=== PATIENT | female | born 1930 | race Caucasian/White ===

== ENCOUNTER 2017-10-23 17:54 | Inpatient (IN) | payer MEDICARE, OTHER ==
[2017-10-23] MEDS ORDERED: ONDANSETRON 4 MG INJ IV ×2 (18:30→23:00)
[2017-10-23] MEDS ORDERED: ACETAMINOPHEN 325 MG TAB PO (18:30)
[2017-10-23 19:28] LABS: ADD MAN DIFF? NO
[2017-10-23] MEDS: CEFEPIME 2GM/50 ML (PMX) 50 ML IVPB (19:30)
[2017-10-23 19:49] LABS: ALANINE AMINOTRANSFERASE 21 IU/L (13-69); ALBUMIN 4.1 g/dl (3.3-4.9); ALKALINE PHOSPHATASE 70 IU/L (42-121); ANION GAP 14 (8-16); ASPARTATE AMINO TRANSFERASE 32 IU/L (15-46); BILIRUBIN,INDIRECT 0.7 mg/dl (0-1.1); BILIRUBIN,TOTAL 0.7 mg/dl (0.2-1.3); BLOOD UREA NITROGEN 18 mg/dl (7-20); CALCIUM 9.1 mg/dl (8.4-10.2); CARBON DIOXIDE 36 mmol/L (21-31); CHLORIDE 91 mmol/L (97-110); CREATININE 0.48 mg/dl (0.44-1.00); GLUCOSE 121 mg/dl (70-220); POTASSIUM 3.6 mmol/L (3.5-5.1); SODIUM 137 mmol/L (135-144); TOTAL PROTEIN 8.2 g/dl (6.1-8.1)
[2017-10-23 19:52] LABS: INR 1.15; PARTIAL THROMBOPLASTIN TIME 29.7 Sec (25.0-35.0); PROTIME 14.9 Sec (11.9-14.9); PT RATIO 1.2
[2017-10-23 20:08] LABS: TROPONIN-I < 0.012 ng/ml (0.000-0.120)
[2017-10-23 20:52] LABS: WHITE BLOOD COUNT 8.3 10^3/ul (4.8-10.8)
[2017-10-23 20:52] LABS: BASOPHILS % 0.2 % (0.0-2.0); EOSINOPHILS # 0.1 10^3/ul (0.0-0.5); EOSINOPHILS % 0.7 % (0.0-7.0); HEMOGLOBIN 12.1 g/dl (12.0-16.0); LYMPHOCYTES # 0.7 10^3/ul (0.8-2.9); LYMPHOCYTES % 8.3 % (15.0-51.0); MEAN CORPUSCULAR HEMOGLOBIN 28.9 pg (29.0-33.0); MEAN CORPUSCULAR HGB CONC 33.6 g/dl (32.0-37.0); MEAN CORPUSCULAR VOLUME 85.9 fl (82.0-101.0); MONOCYTE # 1.3 10^3/ul (0.3-0.9); MONOCYTES % 15.4 % (0.0-11.0); NEUTROPHIL # 6.2 10^3/ul (1.6-7.5); PLATELET COUNT 131 10^3/UL (140-415); RED BLOOD COUNT 4.19 10^6/ul (4.20-5.40); RED CELL DISTRIBUTION WIDTH 15.8 % (11.5-14.5)
[2017-10-23] MEDS: VANCOMYCIN 1 GM (PMX) 250 ML IVPB (21:31)
[2017-10-23 22:41] LABS: ADD UMIC NO; UR ASCORBIC ACID NEGATIVE (NEGATIVE); UR BILIRUBIN (Dip) NEGATIVE (NEGATIVE); UR BLOOD (Dip) NEGATIVE (NEGATIVE); UR CLARITY CLEAR (CLEAR); UR COLOR YELLOW (YELLOW); UR GLUCOSE (Dip) NEGATIVE (NEGATIVE); UR KETONES (Dip) NEGATIVE (NEGATIVE); UR LEUKOCYTE ESTERASE (Dip) NEGATIVE Leu/ul (NEGATIVE); UR NITRITE (Dip) NEGATIVE (NEGATIVE); UR SPECIFIC GRAVITY (Dip) 1.006 (1.003-1.030); UR TOTAL PROTEIN (Dip) NEGATIVE (NEGATIVE); UR UROBILINOGEN (Dip) NEGATIVE (NEGATIVE)
[2017-10-23] MEDS ORDERED: ACETAMINOPHEN 500 MG TAB PO ×2 (23:00→23:30)
[2017-10-23] MEDS ORDERED: MINERAL OIL 133 ML ENEMA PR (23:30)
[2017-10-24] MEDS: DEXTROSE 5%-0.45% NACL 1,000 ML IV ×2 (00:36→12:50)
[2017-10-24] MEDS ORDERED: PENDING SANTYL ORDER FOR WOUND CARE XX (02:30)
[2017-10-24] MEDS: BUMETANIDE 0.5 MG TAB PO ×2 (05:09→17:00)
[2017-10-24] MEDS: LEVOTHYROXINE 150 MCG TAB PO (05:09)
[2017-10-24] MEDS: LIOTHYRONINE 5 MCG TAB PO (05:09)
[2017-10-24 07:12] LABS: ADD MAN DIFF? NO
[2017-10-24 07:16] LABS: WHITE BLOOD COUNT 8.6 10^3/ul (4.8-10.8)
[2017-10-24 07:16] LABS: ABNORMAL IP MESSAGE 1; BASOPHILS % 0.3 % (0.0-2.0); EOSINOPHILS % 0.2 % (0.0-7.0); LYMPHOCYTES # 0.6 10^3/ul (0.8-2.9); LYMPHOCYTES % 6.7 % (15.0-51.0); MEAN CORPUSCULAR HEMOGLOBIN 28.8 pg (29.0-33.0); MEAN CORPUSCULAR HGB CONC 33.3 g/dl (32.0-37.0); MEAN CORPUSCULAR VOLUME 86.5 fl (82.0-101.0); MEAN PLATELET VOLUME 12.8 fl (7.4-10.4); MONOCYTE # 1.2 10^3/ul (0.3-0.9); MONOCYTES % 14.3 % (0.0-11.0); NEUTROPHIL # 6.7 10^3/ul (1.6-7.5); NEUTROPHILS % 78.3 % (39.0-77.0); PLATELET COUNT 131 10^3/UL (140-415); RED BLOOD COUNT 4.16 10^6/ul (4.20-5.40); RED CELL DISTRIBUTION WIDTH 15.8 % (11.5-14.5)
[2017-10-24 07:37] LABS: ANION GAP 11 (8-16); BLOOD UREA NITROGEN 14 mg/dl (7-20); CALCIUM 8.7 mg/dl (8.4-10.2); CARBON DIOXIDE 37 mmol/L (21-31); CHLORIDE 92 mmol/L (97-110); CREATININE 0.47 mg/dl (0.44-1.00); GLUCOSE 115 mg/dl (70-220); POTASSIUM 3.1 mmol/L (3.5-5.1); SODIUM 137 mmol/L (135-144)
[2017-10-24 08:08] LABS: THYROID STIMULATING HORMONE 0.727 MIU/L (0.465-4.680)
[2017-10-24] MEDS: POLYETHYLENE GLYCOL 17 GM PACKET PO (08:26)
[2017-10-24] MEDS: AMLODIPINE 5 MG TAB PO ×2 (08:26→21:00)
[2017-10-24] MEDS: CALCIUM/VITAMIN D (500/200) TAB PO (08:27)
[2017-10-24] MEDS: CEFEPIME 1GM/50 ML (PMX) 50 ML IVPB ×2 (08:34→21:21)
[2017-10-24] MEDS: hydrALAzine 20 MG INJ IV (08:35)
[2017-10-24] MEDS: ENOXAPARIN 30 MG/0.3 ML SYG SC (08:35)
[2017-10-24] MEDS: POTASSIUM CHLORIDE 50 ML IVPB ×4 (11:30→18:32)
[2017-10-24] MEDS ORDERED: POTASSIUM CHLORIDE 100 ML IVPB ×2 (12:00→12:30)
[2017-10-24] MEDS: ACETAMINOPHEN 1000MG/100ML IV 100 ML IVPB (12:02)
[2017-10-24] MEDS: SENNA TAB PO (21:00)
[2017-10-24] MEDS ORDERED: NON-FORMULARY/PATIENT OWN MED (Melatonin 10 MG) PO (21:00)
[2017-10-24] MEDS: IBUPROFEN 600 MG TAB PO ×3 (22:50→23:05)
[2017-10-25] MEDS: LIOTHYRONINE 5 MCG TAB PO (05:58)
[2017-10-25] MEDS: IBUPROFEN 600 MG TAB PO ×3 (05:58→21:19)
[2017-10-25] MEDS: BUMETANIDE 0.5 MG TAB PO ×2 (05:58→18:00)
[2017-10-25] MEDS: DEXTROSE 5%-0.45% NACL 1,000 ML IV (06:00)
[2017-10-25] MEDS: LEVOTHYROXINE 150 MCG TAB PO (06:00)
[2017-10-25] MEDS: POLYETHYLENE GLYCOL 17 GM PACKET PO (09:00)
[2017-10-25] MEDS: AMLODIPINE 5 MG TAB PO ×2 (09:00→21:00)
[2017-10-25] MEDS: CALCIUM/VITAMIN D (500/200) TAB PO (09:00)
[2017-10-25] MEDS: ENOXAPARIN 30 MG/0.3 ML SYG SC (09:12)
[2017-10-25 09:29] LABS: ADD MAN DIFF? NO
[2017-10-25 09:33] LABS: WHITE BLOOD COUNT 7.4 10^3/ul (4.8-10.8)
[2017-10-25 09:33] LABS: BASOPHILS % 0.4 % (0.0-2.0); EOSINOPHILS % 0.5 % (0.0-7.0); HEMOGLOBIN 11.6 g/dl (12.0-16.0); LYMPHOCYTES # 0.7 10^3/ul (0.8-2.9); LYMPHOCYTES % 9.5 % (15.0-51.0); MEAN CORPUSCULAR HEMOGLOBIN 28.5 pg (29.0-33.0); MEAN CORPUSCULAR HGB CONC 32.2 g/dl (32.0-37.0); MEAN CORPUSCULAR VOLUME 88.5 fl (82.0-101.0); MEAN PLATELET VOLUME 12.5 fl (7.4-10.4); MONOCYTE # 1.2 10^3/ul (0.3-0.9); MONOCYTES % 16.3 % (0.0-11.0); NEUTROPHIL # 5.4 10^3/ul (1.6-7.5); PLATELET COUNT 133 10^3/UL (140-415); RED BLOOD COUNT 4.07 10^6/ul (4.20-5.40); RED CELL DISTRIBUTION WIDTH 16.2 % (11.5-14.5)
[2017-10-25] MEDS: CEFEPIME 1GM/50 ML (PMX) 50 ML IVPB ×2 (09:46→21:20)
[2017-10-25 09:59] LABS: INR 1.26; PT RATIO 1.3
[2017-10-25] MEDS: BARIUM SULFATE 135 ML (E-Z HD) PO (13:59)
[2017-10-25] MEDS: FUROSEMIDE 20 MG INJ IV (14:56)
[2017-10-25] MEDS: D5-NS + KCL 20 MEQ 1,000 ML IV (18:49)
[2017-10-25] MEDS: POTASSIUM CHLORIDE 100 ML IVPB (18:49)
[2017-10-25] MEDS: SENNA TAB PO (21:00)
[2017-10-26] MEDS: LIOTHYRONINE 5 MCG TAB PO (05:15)
[2017-10-26] MEDS: BUMETANIDE 0.5 MG TAB PO ×2 (05:15→17:06)
[2017-10-26] MEDS: IBUPROFEN 600 MG TAB PO ×3 (05:15→21:22)
[2017-10-26] MEDS: LEVOTHYROXINE 150 MCG TAB PO (05:16)
[2017-10-26 06:04] LABS: ADD MAN DIFF? NO
[2017-10-26 06:12] LABS: BASOPHILS % 0.3 % (0.0-2.0); EOSINOPHILS # 0.1 10^3/ul (0.0-0.5); EOSINOPHILS % 1.4 % (0.0-7.0); HEMATOCRIT 35.7 % (37.0-47.0); HEMOGLOBIN 11.5 g/dl (12.0-16.0); LYMPHOCYTES # 0.7 10^3/ul (0.8-2.9); LYMPHOCYTES % 10.4 % (15.0-51.0); MEAN CORPUSCULAR HEMOGLOBIN 28.8 pg (29.0-33.0); MEAN CORPUSCULAR HGB CONC 32.2 g/dl (32.0-37.0); MEAN CORPUSCULAR VOLUME 89.5 fl (82.0-101.0); MEAN PLATELET VOLUME 12.4 fl (7.4-10.4); MONOCYTE # 0.8 10^3/ul (0.3-0.9); MONOCYTES % 11.7 % (0.0-11.0); NEUTROPHIL # 5.3 10^3/ul (1.6-7.5); NEUTROPHILS % 75.8 % (39.0-77.0); PLATELET COUNT 144 10^3/UL (140-415); RED BLOOD COUNT 3.99 10^6/ul (4.20-5.40)
[2017-10-26 06:31] LABS: ANION GAP 13 (8-16); BLOOD UREA NITROGEN 19 mg/dl (7-20); CALCIUM 8.8 mg/dl (8.4-10.2); CARBON DIOXIDE 35 mmol/L (21-31); CHLORIDE 96 mmol/L (97-110); CREATININE 0.56 mg/dl (0.44-1.00); GLUCOSE 84 mg/dl (70-220); POTASSIUM 3.8 mmol/L (3.5-5.1); SODIUM 140 mmol/L (135-144)
[2017-10-26] MEDS: CALCIUM/VITAMIN D (500/200) TAB PO (08:15)
[2017-10-26] MEDS: AMLODIPINE 5 MG TAB PO ×2 (08:15→21:00)
[2017-10-26] MEDS: POLYETHYLENE GLYCOL 17 GM PACKET PO (08:15)
[2017-10-26] MEDS: CEFEPIME 1GM/50 ML (PMX) 50 ML IVPB ×2 (08:23→21:23)
[2017-10-26] MEDS: ENOXAPARIN 30 MG/0.3 ML SYG SC (08:27)
[2017-10-26] MEDS: D5-NS + KCL 20 MEQ 1,000 ML IV (10:40)
[2017-10-26] MEDS: SENNA TAB PO (21:00)
[2017-10-27] MEDS: D5-NS + KCL 20 MEQ 1,000 ML IV (03:20)
[2017-10-27] MEDS: BUMETANIDE 0.5 MG TAB PO (06:00)
[2017-10-27] MEDS: IBUPROFEN 600 MG TAB PO ×3 (06:00→21:19)
[2017-10-27] MEDS: LIOTHYRONINE 5 MCG TAB PO (07:00)
[2017-10-27] MEDS: LEVOTHYROXINE 150 MCG TAB PO (07:00)
[2017-10-27] MEDS: BARIUM SULF 2% 450 ML BTL (BERRY SMOOTHIE) PO (08:00)
[2017-10-27 08:16] LABS: ANION GAP 9 (8-16); BLOOD UREA NITROGEN 22 mg/dl (7-20); CALCIUM 8.8 mg/dl (8.4-10.2); CARBON DIOXIDE 35 mmol/L (21-31); CHLORIDE 102 mmol/L (97-110); CREATININE 0.56 mg/dl (0.44-1.00); GLUCOSE 101 mg/dl (70-220); SODIUM 142 mmol/L (135-144)
[2017-10-27] MEDS: POLYETHYLENE GLYCOL 17 GM PACKET PO (09:00)
[2017-10-27] MEDS: AMLODIPINE 5 MG TAB PO ×2 (09:00→21:00)
[2017-10-27] MEDS: CALCIUM/VITAMIN D (500/200) TAB PO (09:00)
[2017-10-27] MEDS: CEFEPIME 1GM/50 ML (PMX) 50 ML IVPB ×2 (09:05→21:26)
[2017-10-27] MEDS: ENOXAPARIN 30 MG/0.3 ML SYG SC (09:09)
[2017-10-27] MEDS: BISACODYL (EC) 5 MG TAB PO (09:47)
[2017-10-27] MEDS: LUBIPROSTONE 24 MCG CAP PO ×2 (09:48→21:00)
[2017-10-27] MEDS: SOD CHLORIDE 0.9% 100 ML (12:05)
[2017-10-27] MEDS: IOHEXOL 300MG/ML 150 ML BTL (12:05)
[2017-10-27] MEDS: BUMETANIDE 1 MG INJ IV (18:13)
[2017-10-27] MEDS: SENNA TAB PO (21:00)
[2017-10-28] MEDS: IBUPROFEN 600 MG TAB PO ×3 (05:17→22:00)
[2017-10-28] MEDS: BUMETANIDE 1 MG INJ IV ×2 (05:45→17:39)
[2017-10-28] MEDS: D5-NS + KCL 20 MEQ 1,000 ML IV ×2 (05:52→12:24)
[2017-10-28] MEDS: PANTOPRAZOLE (EC) 40 MG TAB PO (06:00)
[2017-10-28] MEDS: LEVOTHYROXINE 150 MCG TAB PO (07:00)
[2017-10-28] MEDS: LIOTHYRONINE 5 MCG TAB PO (07:00)
[2017-10-28 08:12] LABS: ANION GAP 13 (8-16); BLOOD UREA NITROGEN 20 mg/dl (7-20); CALCIUM 9.2 mg/dl (8.4-10.2); CARBON DIOXIDE 39 mmol/L (21-31); CHLORIDE 100 mmol/L (97-110); CREATININE 0.55 mg/dl (0.44-1.00); GLUCOSE 100 mg/dl (70-220); POTASSIUM 3.7 mmol/L (3.5-5.1); SODIUM 148 mmol/L (135-144)
[2017-10-28] MEDS: LUBIPROSTONE 24 MCG CAP PO ×2 (08:53→21:00)
[2017-10-28] MEDS: POLYETHYLENE GLYCOL 17 GM PACKET PO (08:53)
[2017-10-28] MEDS: CALCIUM/VITAMIN D (500/200) TAB PO (08:54)
[2017-10-28] MEDS: AMLODIPINE 5 MG TAB PO ×2 (08:54→21:00)
[2017-10-28] MEDS: CEFEPIME 1GM/50 ML (PMX) 50 ML IVPB ×2 (08:57→21:00)
[2017-10-28] MEDS: hydrALAzine 20 MG INJ IV ×2 (08:58→15:52)
[2017-10-28] MEDS: ENOXAPARIN 30 MG/0.3 ML SYG SC (08:58)
[2017-10-28] MEDS: SOD CHLORIDE 0.9% 100 ML (11:50)
[2017-10-28] MEDS: IOHEXOL 300MG/ML 150 ML BTL (11:50)
[2017-10-28] MEDS: SENNA TAB PO (21:00)
[2017-10-29] MEDS: D5-NS + KCL 20 MEQ 1,000 ML IV (05:23)
[2017-10-29] MEDS: BUMETANIDE 1 MG INJ IV ×2 (05:23→17:30)
[2017-10-29] MEDS: hydrALAzine 20 MG INJ IV ×2 (05:23→21:59)
[2017-10-29] MEDS: IBUPROFEN 600 MG TAB PO ×3 (05:38→22:00)
[2017-10-29] MEDS: PANTOPRAZOLE (EC) 40 MG TAB PO (05:38)
[2017-10-29] MEDS: LEVOTHYROXINE 150 MCG TAB PO (05:39)
[2017-10-29] MEDS: LIOTHYRONINE 5 MCG TAB PO (05:39)
[2017-10-29 08:27] LABS: ANION GAP 15 (8-16); BLOOD UREA NITROGEN 16 mg/dl (7-20); CALCIUM 9.2 mg/dl (8.4-10.2); CARBON DIOXIDE 40 mmol/L (21-31); CHLORIDE 95 mmol/L (97-110); CREATININE 0.49 mg/dl (0.44-1.00); GLUCOSE 132 mg/dl (70-220); POTASSIUM 3.1 mmol/L (3.5-5.1); SODIUM 147 mmol/L (135-144)
[2017-10-29] MEDS: AMLODIPINE 5 MG TAB PO ×2 (08:55→21:00)
[2017-10-29] MEDS: CALCIUM/VITAMIN D (500/200) TAB PO (08:55)
[2017-10-29] MEDS: POLYETHYLENE GLYCOL 17 GM PACKET PO (08:55)
[2017-10-29] MEDS: LUBIPROSTONE 24 MCG CAP PO ×2 (08:55→21:00)
[2017-10-29] MEDS: CEFEPIME 1GM/50 ML (PMX) 50 ML IVPB ×2 (08:56→21:58)
[2017-10-29] MEDS: ENOXAPARIN 30 MG/0.3 ML SYG SC (08:59)
[2017-10-29] MEDS ORDERED: HEPARIN 1000 UNITS/NS (A-LINE) 1,000 ML (11:39)
[2017-10-29] MEDS ORDERED: LIDOCAINE 1% (MDV) 20 ML INJ (11:39)
[2017-10-29 12:54] LABS: INR 1.12; PROTIME 14.6 Sec (11.9-14.9); PT RATIO 1.1
[2017-10-29 12:55] LABS: PARTIAL THROMBOPLASTIN TIME 37.4 Sec (25.0-35.0)
[2017-10-29] MEDS: D5W-0.45 NACL + KCL 20 MEQ 1,000 ML IV (13:19)
[2017-10-29] MEDS: POTASSIUM CHLORIDE 100 ML IVPB ×2 (13:19→15:20)
[2017-10-29] MEDS: SENNA TAB PO (21:00)
[2017-10-30] MEDS: D5W-0.45 NACL + KCL 20 MEQ 1,000 ML IV ×2 (02:48→17:34)
[2017-10-30] MEDS: PANTOPRAZOLE (EC) 40 MG TAB PO (06:00)
[2017-10-30] MEDS: IBUPROFEN 600 MG TAB PO ×3 (06:00→21:01)
[2017-10-30] MEDS: BUMETANIDE 1 MG INJ IV ×2 (06:38→17:33)
[2017-10-30] MEDS: LEVOTHYROXINE 150 MCG TAB PO (06:39)
[2017-10-30] MEDS: LIOTHYRONINE 5 MCG TAB PO (06:39)
[2017-10-30] MEDS: CEFEPIME 1GM/50 ML (PMX) 50 ML IVPB ×2 (08:41→22:14)
[2017-10-30] MEDS: ENOXAPARIN 30 MG/0.3 ML SYG SC (08:45)
[2017-10-30] MEDS: CALCIUM/VITAMIN D (500/200) TAB PO (08:46)
[2017-10-30] MEDS: LUBIPROSTONE 24 MCG CAP PO ×2 (08:46→21:00)
[2017-10-30] MEDS: AMLODIPINE 5 MG TAB PO ×2 (08:46→21:00)
[2017-10-30] MEDS: POLYETHYLENE GLYCOL 17 GM PACKET PO (08:46)
[2017-10-30 08:49] LABS: ADD MAN DIFF? NO
[2017-10-30 08:56] LABS: BASOPHILS % 0.4 % (0.0-2.0); EOSINOPHILS # 0.1 10^3/ul (0.0-0.5); EOSINOPHILS % 1.2 % (0.0-7.0); HEMATOCRIT 38.1 % (37.0-47.0); LYMPHOCYTES # 0.8 10^3/ul (0.8-2.9); LYMPHOCYTES % 10.8 % (15.0-51.0); MEAN CORPUSCULAR HGB CONC 31.5 g/dl (32.0-37.0); MEAN CORPUSCULAR VOLUME 88.8 fl (82.0-101.0); MEAN PLATELET VOLUME 11.4 fl (7.4-10.4); MONOCYTE # 0.8 10^3/ul (0.3-0.9); MONOCYTES % 11.3 % (0.0-11.0); NEUTROPHIL # 5.5 10^3/ul (1.6-7.5); PLATELET COUNT 147 10^3/UL (140-415); RED BLOOD COUNT 4.29 10^6/ul (4.20-5.40); RED CELL DISTRIBUTION WIDTH 15.6 % (11.5-14.5)
[2017-10-30 08:56] LABS: WHITE BLOOD COUNT 7.2 10^3/ul (4.8-10.8)
[2017-10-30 09:05] LABS: PLATELET COUNT 147 10^3/UL (140-415)
[2017-10-30 09:15] LABS: BLOOD UREA NITROGEN 16 mg/dl (7-20); CALCIUM 9.1 mg/dl (8.4-10.2); CHLORIDE 96 mmol/L (97-110); CREATININE 0.46 mg/dl (0.44-1.00); GLUCOSE 124 mg/dl (70-220); POTASSIUM 4.3 mmol/L (3.5-5.1); SODIUM 145 mmol/L (135-144)
[2017-10-30 09:31] LABS: INR 1.14; PARTIAL THROMBOPLASTIN TIME 33.7 Sec (25.0-35.0); PROTIME 14.8 Sec (11.9-14.9); PT RATIO 1.2; THROMBIN TIME 18.4 SEC (13.8-19.1)
[2017-10-30] MEDS: PROPOFOL 0 ML (10:00)
[2017-10-30 10:01] LABS: CARBON DIOXIDE 41 mmol/L (21-31)
[2017-10-30 10:02] LABS: ANION GAP 12 (8-16)
[2017-10-30] MEDS ORDERED: AL HYDROX/MG HYDROX/SIMETH 30 ML CUP PO (11:00)
[2017-10-30] MEDS ORDERED: ONDANSETRON 4 MG INJ IV (11:00)
[2017-10-30] MEDS ORDERED: ACETAMINOPHEN 325 MG TAB PO (11:00)
[2017-10-30 11:57] LABS: CA27.29 11 U/mL (<38)
[2017-10-30 12:19] LABS: FLUID GLUCOSE 122 mg/dl
[2017-10-30 12:20] LABS: FLUID TOTAL PROTEIN 4.7 g/dl; FLUID TYPE PERICARDIAL FLUID
[2017-10-30 12:26] LABS: FLD MN% 36.4 %; FLD PMN% 63.6 %; FLD RBC 60000 /uL; FLD WBC 11 /cmm
[2017-10-30 12:42] LABS: FLUID LD 397 U/L
[2017-10-30 13:24] LABS: FLD CLARITY BLOODY; FLD COLOR RED
[2017-10-30 13:24] LABS: FLD TYPE OTHERS
[2017-10-30] MEDS: SOD CHLORIDE 0.9% 1,000 ML IV (14:09)
[2017-10-30] MEDS: SENNA TAB PO (21:00)
[2017-10-30 21:45] LABS: CANCER ANTIGEN 15-3 5 U/mL (<32)
[2017-10-31] MEDS: IBUPROFEN 600 MG TAB PO ×3 (06:00→22:00)
[2017-10-31] MEDS: PANTOPRAZOLE (EC) 40 MG TAB PO (06:00)
[2017-10-31] MEDS: BUMETANIDE 1 MG INJ IV (06:34)
[2017-10-31] MEDS: LIOTHYRONINE 5 MCG TAB PO (06:35)
[2017-10-31] MEDS: LEVOTHYROXINE 150 MCG TAB PO (06:35)
[2017-10-31] MEDS: D5W-0.45 NACL + KCL 20 MEQ 1,000 ML IV ×2 (07:55→21:42)
[2017-10-31] MEDS: CEFEPIME 1GM/50 ML (PMX) 50 ML IVPB ×2 (08:04→21:12)
[2017-10-31] MEDS: POLYETHYLENE GLYCOL 17 GM PACKET PO (08:07)
[2017-10-31] MEDS: CALCIUM/VITAMIN D (500/200) TAB PO (08:07)
[2017-10-31] MEDS: LUBIPROSTONE 24 MCG CAP PO ×2 (08:07→21:00)
[2017-10-31] MEDS: AMLODIPINE 5 MG TAB PO ×2 (08:07→21:00)
[2017-10-31 09:04] LABS: ADD MAN DIFF? NO
[2017-10-31 09:09] LABS: BASOPHILS % 0.2 % (0.0-2.0); EOSINOPHILS % 0.2 % (0.0-7.0); HEMATOCRIT 35.1 % (37.0-47.0); HEMOGLOBIN 11.2 g/dl (12.0-16.0); LYMPHOCYTES # 0.8 10^3/ul (0.8-2.9); LYMPHOCYTES % 7.5 % (15.0-51.0); MEAN CORPUSCULAR HEMOGLOBIN 28.4 pg (29.0-33.0); MEAN CORPUSCULAR HGB CONC 31.9 g/dl (32.0-37.0); MEAN CORPUSCULAR VOLUME 88.9 fl (82.0-101.0); MEAN PLATELET VOLUME 11.7 fl (7.4-10.4); MONOCYTE # 1.2 10^3/ul (0.3-0.9); MONOCYTES % 11.7 % (0.0-11.0); NEUTROPHIL # 8.1 10^3/ul (1.6-7.5); NEUTROPHILS % 80.1 % (39.0-77.0); PLATELET COUNT 130 10^3/UL (140-415); RED BLOOD COUNT 3.95 10^6/ul (4.20-5.40); RED CELL DISTRIBUTION WIDTH 15.5 % (11.5-14.5)
[2017-10-31 09:09] LABS: WHITE BLOOD COUNT 10.1 10^3/ul (4.8-10.8)
[2017-10-31 09:28] LABS: POSITIVE DIFF @See below
[2017-10-31 09:35] LABS: BLOOD UREA NITROGEN 20 mg/dl (7-20); CHLORIDE 92 mmol/L (97-110); CREATININE 0.67 mg/dl (0.44-1.00); GLUCOSE 129 mg/dl (70-220); POTASSIUM 3.6 mmol/L (3.5-5.1); SODIUM 144 mmol/L (135-144)
[2017-10-31 09:46] LABS: ANION GAP 12 (8-16)
[2017-10-31 09:48] LABS: CARBON DIOXIDE 44 mmol/L (21-31)
[2017-10-31] MEDS: ACETAZOLAMIDE 250 MG TAB PO (15:30)
[2017-10-31] MEDS: SENNA TAB PO (21:00)
[2017-10-31] MEDS: METOPROLOL 25 MG TAB PO (21:00)
[2017-10-31] MEDS: ENOXAPARIN 30 MG/0.3 ML SYG SC (21:13)
[2017-11-01 02:11] LABS: PROTEIN, TOTAL 6.6 g/dL (6.1-8.1)
[2017-11-01] MEDS: IBUPROFEN 600 MG TAB PO ×3 (06:00→22:00)
[2017-11-01] MEDS: PANTOPRAZOLE (EC) 40 MG TAB PO (06:00)
[2017-11-01] MEDS: LEVOTHYROXINE 150 MCG TAB PO (06:21)
[2017-11-01] MEDS: LIOTHYRONINE 5 MCG TAB PO (06:21)
[2017-11-01 07:19] LABS: BLOOD UREA NITROGEN 24 mg/dl (7-20); CALCIUM 8.9 mg/dl (8.4-10.2); CHLORIDE 95 mmol/L (97-110); CREATININE 0.63 mg/dl (0.44-1.00); GLUCOSE 118 mg/dl (70-220); POTASSIUM 3.6 mmol/L (3.5-5.1); SODIUM 146 mmol/L (135-144)
[2017-11-01 07:48] LABS: ANION GAP 13 (8-16)
[2017-11-01 07:50] LABS: CARBON DIOXIDE 42 mmol/L (21-31)
[2017-11-01] MEDS: ACETAZOLAMIDE 250 MG TAB PO (09:00)
[2017-11-01] MEDS: METOPROLOL 25 MG TAB PO ×2 (09:00→20:50)
[2017-11-01] MEDS: AMLODIPINE 5 MG TAB PO ×2 (09:00→20:51)
[2017-11-01] MEDS: CALCIUM/VITAMIN D (500/200) TAB PO (09:00)
[2017-11-01] MEDS: POLYETHYLENE GLYCOL 17 GM PACKET PO (09:00)
[2017-11-01] MEDS: LUBIPROSTONE 24 MCG CAP PO ×2 (09:00→20:50)
[2017-11-01] MEDS: ENOXAPARIN 30 MG/0.3 ML SYG SC ×2 (09:11→20:51)
[2017-11-01] MEDS: CEFEPIME 1GM/50 ML (PMX) 50 ML IVPB ×2 (09:16→20:39)
[2017-11-01] MEDS: BUMETANIDE 1 MG INJ IV (09:16)
[2017-11-01] MEDS: DIGOXIN 500 MCG INJ IV ×2 (12:12→17:12)
[2017-11-01] MEDS: D5W-0.45 NACL + KCL 20 MEQ 1,000 ML IV (17:11)
[2017-11-01 18:46] LABS: ALBUMIN 3.3 g/dL (3.8-4.8); ALPHA-1-GLOBULINS 0.4 g/dL (0.2-0.3); ALPHA-2-GLOBULINS 0.5 g/dL (0.5-0.9); BETA 2 GLOBULINS 0.5 g/dL (0.2-0.5); BETA GLOBULINS 0.5 g/dL (0.4-0.6); GAMMA GLOBULINS 1.5 g/dL (0.8-1.7)
[2017-11-01] MEDS: hydrALAzine 20 MG INJ IV (20:42)
[2017-11-01] MEDS: SENNA TAB PO (20:51)
[2017-11-02] MEDS: D5W-0.45 NACL + KCL 20 MEQ 1,000 ML IV ×3 (02:18→10:53)
[2017-11-02] MEDS: PANTOPRAZOLE (EC) 40 MG TAB PO (06:00)
[2017-11-02] MEDS: IBUPROFEN 600 MG TAB PO ×3 (06:00→21:21)
[2017-11-02 06:34] LABS: ADD MAN DIFF? NO
[2017-11-02 06:40] LABS: ABNORMAL IP MESSAGE 1; BASOPHILS % 0.3 % (0.0-2.0); EOSINOPHILS # 0.2 10^3/ul (0.0-0.5); HEMATOCRIT 34.9 % (37.0-47.0); HEMOGLOBIN 11.1 g/dl (12.0-16.0); LYMPHOCYTES # 0.6 10^3/ul (0.8-2.9); LYMPHOCYTES % 6.8 % (15.0-51.0); MEAN CORPUSCULAR HEMOGLOBIN 28.5 pg (29.0-33.0); MEAN CORPUSCULAR HGB CONC 31.8 g/dl (32.0-37.0); MEAN CORPUSCULAR VOLUME 89.7 fl (82.0-101.0); MEAN PLATELET VOLUME 12.8 fl (7.4-10.4); MONOCYTE # 0.9 10^3/ul (0.3-0.9); MONOCYTES % 9.9 % (0.0-11.0); NEUTROPHILS % 80.7 % (39.0-77.0); PLATELET COUNT 122 10^3/UL (140-415); RED BLOOD COUNT 3.89 10^6/ul (4.20-5.40); RED CELL DISTRIBUTION WIDTH 15.5 % (11.5-14.5)
[2017-11-02 06:40] LABS: WHITE BLOOD COUNT 8.7 10^3/ul (4.8-10.8)
[2017-11-02] MEDS: LIOTHYRONINE 5 MCG TAB PO (06:47)
[2017-11-02] MEDS: LEVOTHYROXINE 150 MCG TAB PO (06:48)
[2017-11-02 06:56] LABS: BLOOD UREA NITROGEN 23 mg/dl (7-20); CALCIUM 8.7 mg/dl (8.4-10.2); CHLORIDE 97 mmol/L (97-110); GLUCOSE 114 mg/dl (70-220); POTASSIUM 3.6 mmol/L (3.5-5.1); SODIUM 146 mmol/L (135-144)
[2017-11-02 07:04] LABS: ANION GAP 13 (8-16); CARBON DIOXIDE 40 mmol/L (21-31)
[2017-11-02 07:13] LABS: POSITIVE DIFF @See below
[2017-11-02] MEDS: LUBIPROSTONE 24 MCG CAP PO ×2 (07:21→21:00)
[2017-11-02] MEDS: METOPROLOL 25 MG TAB PO ×2 (07:21→21:00)
[2017-11-02] MEDS: POLYETHYLENE GLYCOL 17 GM PACKET PO (07:21)
[2017-11-02] MEDS: AMLODIPINE 5 MG TAB PO ×2 (07:21→21:00)
[2017-11-02] MEDS: ACETAZOLAMIDE 250 MG TAB PO (07:21)
[2017-11-02] MEDS: CALCIUM/VITAMIN D (500/200) TAB PO (07:21)
[2017-11-02] MEDS: ENOXAPARIN 30 MG/0.3 ML SYG SC (07:22)
[2017-11-02] MEDS: CEFEPIME 1GM/50 ML (PMX) 50 ML IVPB ×2 (07:56→21:25)
[2017-11-02] MEDS: BUMETANIDE 1 MG INJ IV (07:56)
[2017-11-02 13:07] LABS: Allen Test ACCEPTAB; Arterial Base Excess 11.7 mmol/L (-3.0-3); Arterial COHb 0.2 % (0.0-3.0); Arterial Fraction of Oxyhgb 98.6 % (93.0-99.0); Arterial HCO3 37.6 mmol/L (22.0-26.0); Arterial MetHb 0.2 % (0.0-1.5); Arterial pCO2 55.5 mmhg (35-45); MODE NASAL CANNULA; Site Left Radial
[2017-11-02] MEDS: SENNA TAB PO (21:00)
[2017-11-02] MEDS: hydrALAzine 20 MG INJ IV (21:25)
[2017-11-03] MEDS: IBUPROFEN 600 MG TAB PO ×3 (05:25→21:34)
[2017-11-03] MEDS: PANTOPRAZOLE (EC) 40 MG TAB PO (05:25)
[2017-11-03] MEDS: D5W-0.45 NACL + KCL 20 MEQ 1,000 ML IV ×2 (06:11→21:34)
[2017-11-03] MEDS: LEVOTHYROXINE 150 MCG TAB PO (06:13)
[2017-11-03] MEDS: LIOTHYRONINE 5 MCG TAB PO (06:13)
[2017-11-03 06:54] LABS: ADD MAN DIFF? NO
[2017-11-03 07:06] LABS: WHITE BLOOD COUNT 7.5 10^3/ul (4.8-10.8)
[2017-11-03 07:06] LABS: ABNORMAL IP MESSAGE 1; BASOPHILS % 0.5 % (0.0-2.0); EOSINOPHILS # 0.3 10^3/ul (0.0-0.5); EOSINOPHILS % 3.5 % (0.0-7.0); HEMOGLOBIN 11.5 g/dl (12.0-16.0); LYMPHOCYTES # 0.5 10^3/ul (0.8-2.9); MEAN CORPUSCULAR HEMOGLOBIN 28.3 pg (29.0-33.0); MEAN CORPUSCULAR HGB CONC 31.1 g/dl (32.0-37.0); MEAN CORPUSCULAR VOLUME 91.1 fl (82.0-101.0); MEAN PLATELET VOLUME 12.8 fl (7.4-10.4); MONOCYTE # 0.8 10^3/ul (0.3-0.9); MONOCYTES % 10.5 % (0.0-11.0); NEUTROPHIL # 5.9 10^3/ul (1.6-7.5); NEUTROPHILS % 78.1 % (39.0-77.0); PLATELET COUNT 144 10^3/UL (140-415); RED BLOOD COUNT 4.06 10^6/ul (4.20-5.40); RED CELL DISTRIBUTION WIDTH 15.4 % (11.5-14.5)
[2017-11-03 07:21] LABS: BLOOD UREA NITROGEN 22 mg/dl (7-20); CALCIUM 8.6 mg/dl (8.4-10.2); CHLORIDE 96 mmol/L (97-110); CREATININE 0.59 mg/dl (0.44-1.00); GLUCOSE 138 mg/dl (70-220); POTASSIUM 3.9 mmol/L (3.5-5.1); SODIUM 144 mmol/L (135-144)
[2017-11-03 07:27] LABS: POSITIVE DIFF @See below
[2017-11-03 07:28] LABS: ANION GAP 12 (8-16); CARBON DIOXIDE 40 mmol/L (21-31)
[2017-11-03] MEDS: LUBIPROSTONE 24 MCG CAP PO ×2 (08:44→21:00)
[2017-11-03] MEDS: AMLODIPINE 5 MG TAB PO ×2 (08:45→21:00)
[2017-11-03] MEDS: POLYETHYLENE GLYCOL 17 GM PACKET PO (08:45)
[2017-11-03] MEDS: CALCIUM/VITAMIN D (500/200) TAB PO (08:45)
[2017-11-03] MEDS: METOPROLOL 25 MG TAB PO ×2 (08:45→21:00)
[2017-11-03] MEDS: CEFEPIME 1GM/50 ML (PMX) 50 ML IVPB ×2 (08:57→21:33)
[2017-11-03] MEDS: BUMETANIDE 1 MG INJ IV (08:57)
[2017-11-03 14:59] LABS: AADO2 Arterial 17.5 mmHg (7.0-24.0); Arterial Blood Gas Oxygen Sat 92.1 mmHG (95.0-100.0); Arterial COHb 0.4 % (0.0-3.0); Arterial Fraction of Oxyhgb 91.5 % (93.0-99.0); Arterial HCO3 41.7 mmol/L (22.0-26.0); Arterial MetHb 0.2 % (0.0-1.5); Arterial Total Hemglobin 13.1 g/dl (12.0-18.0); Arterial pCO2 60.2 mmhg (35-45); MODE ROOM AIR; Site LB
[2017-11-03] MEDS: CLONIDINE 0.1 MG/24 HR PATCH TRANSDERM (17:44)
[2017-11-03] MEDS: SENNA TAB PO (21:00)
[2017-11-04] MEDS: IBUPROFEN 600 MG TAB PO ×3 (06:00→21:28)
[2017-11-04] MEDS: PANTOPRAZOLE (EC) 40 MG TAB PO (06:00)
[2017-11-04] MEDS: LIOTHYRONINE 5 MCG TAB PO (06:14)
[2017-11-04] MEDS: LEVOTHYROXINE 150 MCG TAB PO (06:14)
[2017-11-04] MEDS: LUBIPROSTONE 24 MCG CAP PO ×2 (08:55→20:31)
[2017-11-04] MEDS: METOPROLOL 25 MG TAB PO ×2 (08:55→20:31)
[2017-11-04] MEDS: CALCIUM/VITAMIN D (500/200) TAB PO (08:56)
[2017-11-04] MEDS: AMLODIPINE 5 MG TAB PO ×2 (08:56→20:32)
[2017-11-04] MEDS: POLYETHYLENE GLYCOL 17 GM PACKET PO (08:56)
[2017-11-04] MEDS: BUMETANIDE 1 MG INJ IV (09:06)
[2017-11-04] MEDS: CEFEPIME 1GM/50 ML (PMX) 50 ML IVPB ×2 (09:06→20:34)
[2017-11-04 10:23] LABS: ADD MAN DIFF? NO
[2017-11-04 10:27] LABS: WHITE BLOOD COUNT 7.4 10^3/ul (4.8-10.8)
[2017-11-04 10:27] LABS: BASOPHIL # 0.1 10^3/ul (0.0-0.1); BASOPHILS % 0.7 % (0.0-2.0); EOSINOPHILS # 0.1 10^3/ul (0.0-0.5); EOSINOPHILS % 1.9 % (0.0-7.0); HEMATOCRIT 39.6 % (37.0-47.0); HEMOGLOBIN 12.3 g/dl (12.0-16.0); LYMPHOCYTES # 0.8 10^3/ul (0.8-2.9); LYMPHOCYTES % 10.3 % (15.0-51.0); MEAN CORPUSCULAR HEMOGLOBIN 28.5 pg (29.0-33.0); MEAN CORPUSCULAR HGB CONC 31.1 g/dl (32.0-37.0); MEAN CORPUSCULAR VOLUME 91.7 fl (82.0-101.0); MEAN PLATELET VOLUME 12.4 fl (7.4-10.4); MONOCYTE # 0.9 10^3/ul (0.3-0.9); MONOCYTES % 12.5 % (0.0-11.0); NEUTROPHIL # 5.5 10^3/ul (1.6-7.5); NEUTROPHILS % 74.2 % (39.0-77.0); PLATELET COUNT 157 10^3/UL (140-415); RED BLOOD COUNT 4.32 10^6/ul (4.20-5.40); RED CELL DISTRIBUTION WIDTH 15.3 % (11.5-14.5)
[2017-11-04 10:46] LABS: ANION GAP 12 (8-16); BLOOD UREA NITROGEN 24 mg/dl (7-20); CALCIUM 8.6 mg/dl (8.4-10.2); CARBON DIOXIDE 38 mmol/L (21-31); CHLORIDE 97 mmol/L (97-110); CREATININE 0.66 mg/dl (0.44-1.00); GLUCOSE 118 mg/dl (70-220); POTASSIUM 3.9 mmol/L (3.5-5.1); SODIUM 143 mmol/L (135-144)
[2017-11-04] MEDS: D5W-0.45 NACL + KCL 20 MEQ 1,000 ML IV (10:55)
[2017-11-04] MEDS: PROPOFOL 20 ML (12:41)
[2017-11-04] MEDS: EPHEDrine SULFATE 50 MG/5 ML SYG (12:56)
[2017-11-04] MEDS: EPINEPHrine 0.1 MG/ML SYG (13:27)
[2017-11-04] MEDS ORDERED: OXYCODONE/ACETAMINOPHEN (5/325) TAB PO ×2 (14:00)
[2017-11-04] MEDS ORDERED: ONDANSETRON 4 MG INJ IV (14:00)
[2017-11-04] MEDS ORDERED: DIPHENHYDRAMINE 50 MG INJ IV (14:00)
[2017-11-04] MEDS ORDERED: MIDAZOLAM 1 MG/ML 2 ML INJ IV (14:00)
[2017-11-04] MEDS ORDERED: EPHEDrine SULFATE 50 MG/5 ML SYG IV (14:00)
[2017-11-04] MEDS ORDERED: hydrALAzine 20 MG INJ IV (14:00)
[2017-11-04] MEDS ORDERED: LABETALOL HCL 20MG INJ IV (14:00)
[2017-11-04] MEDS ORDERED: FENTAnyl 50 MCG/ML VIAL IV (14:00)
[2017-11-04] MEDS ORDERED: MEPERIDINE 25 MG INJ IV (14:00)
[2017-11-04] MEDS ORDERED: METOCLOPRAMIDE 10 MG INJ IV (14:00)
[2017-11-04] MEDS: IPRATROPIUM (NEB) 0.5 MG/2.5 ML AMP HHN (14:18)
[2017-11-04] MEDS: SENNA TAB PO (20:32)
[2017-11-05] MEDS: D5W-0.45 NACL + KCL 20 MEQ 1,000 ML IV ×2 (00:49→09:12)
[2017-11-05] MEDS: PANTOPRAZOLE (EC) 40 MG TAB PO (06:00)
[2017-11-05] MEDS: IBUPROFEN 600 MG TAB PO ×3 (06:00→21:01)
[2017-11-05] MEDS: LEVOTHYROXINE 150 MCG TAB PO (07:00)
[2017-11-05] MEDS: LIOTHYRONINE 5 MCG TAB PO (07:00)
[2017-11-05] MEDS: LUBIPROSTONE 24 MCG CAP PO ×2 (09:00→21:00)
[2017-11-05] MEDS: METOPROLOL 25 MG TAB PO ×2 (09:00→21:00)
[2017-11-05] MEDS: CALCIUM/VITAMIN D (500/200) TAB PO (09:00)
[2017-11-05] MEDS: POLYETHYLENE GLYCOL 17 GM PACKET PO (09:00)
[2017-11-05] MEDS: AMLODIPINE 5 MG TAB PO ×2 (09:00→21:00)
[2017-11-05 09:02] LABS: ADD MAN DIFF? NO
[2017-11-05 09:09] LABS: WHITE BLOOD COUNT 7.9 10^3/ul (4.8-10.8)
[2017-11-05 09:09] LABS: BASOPHILS % 0.5 % (0.0-2.0); EOSINOPHILS # 0.2 10^3/ul (0.0-0.5); HEMATOCRIT 34.9 % (37.0-47.0); HEMOGLOBIN 11.1 g/dl (12.0-16.0); LYMPHOCYTES # 0.7 10^3/ul (0.8-2.9); LYMPHOCYTES % 8.7 % (15.0-51.0); MEAN CORPUSCULAR HEMOGLOBIN 28.6 pg (29.0-33.0); MEAN CORPUSCULAR HGB CONC 31.8 g/dl (32.0-37.0); MEAN CORPUSCULAR VOLUME 89.9 fl (82.0-101.0); MONOCYTE # 0.9 10^3/ul (0.3-0.9); MONOCYTES % 11.7 % (0.0-11.0); NEUTROPHIL # 6.1 10^3/ul (1.6-7.5); NEUTROPHILS % 76.7 % (39.0-77.0); PLATELET COUNT 141 10^3/UL (140-415); RED BLOOD COUNT 3.88 10^6/ul (4.20-5.40); RED CELL DISTRIBUTION WIDTH 15.4 % (11.5-14.5)
[2017-11-05] MEDS: CEFEPIME 1GM/50 ML (PMX) 50 ML IVPB ×2 (09:12→21:01)
[2017-11-05] MEDS: BUMETANIDE 1 MG INJ IV (09:12)
[2017-11-05 09:34] LABS: ANION GAP 10 (8-16); BLOOD UREA NITROGEN 26 mg/dl (7-20); CALCIUM 8.8 mg/dl (8.4-10.2); CARBON DIOXIDE 39 mmol/L (21-31); CHLORIDE 98 mmol/L (97-110); CREATININE 0.71 mg/dl (0.44-1.00); GLUCOSE 104 mg/dl (70-220); POTASSIUM 3.7 mmol/L (3.5-5.1); SODIUM 143 mmol/L (135-144)
[2017-11-05] MEDS: hydrALAzine 20 MG INJ IV ×2 (12:50→21:02)
[2017-11-05] MEDS: SENNA TAB PO (21:00)
[2017-11-05] MEDS: morphine 2 MG INJ IV (21:18)
[2017-11-06] MEDS: IBUPROFEN 600 MG TAB PO ×3 (06:00→22:00)
[2017-11-06] MEDS: PANTOPRAZOLE (EC) 40 MG TAB PO (06:00)
[2017-11-06] MEDS: LIOTHYRONINE 5 MCG TAB PO (06:12)
[2017-11-06] MEDS: LEVOTHYROXINE 150 MCG TAB PO (06:12)
[2017-11-06] MEDS: D5W-0.45 NACL + KCL 20 MEQ 1,000 ML IV ×2 (06:37→21:59)
[2017-11-06 08:42] LABS: ADD MAN DIFF? NO
[2017-11-06 08:44] LABS: WHITE BLOOD COUNT 9.9 10^3/ul (4.8-10.8)
[2017-11-06 08:44] LABS: BASOPHILS % 0.2 % (0.0-2.0); EOSINOPHILS # 0.1 10^3/ul (0.0-0.5); EOSINOPHILS % 0.6 % (0.0-7.0); HEMATOCRIT 36.6 % (37.0-47.0); HEMOGLOBIN 11.8 g/dl (12.0-16.0); LYMPHOCYTES # 0.7 10^3/ul (0.8-2.9); LYMPHOCYTES % 7.2 % (15.0-51.0); MEAN CORPUSCULAR HEMOGLOBIN 28.5 pg (29.0-33.0); MEAN CORPUSCULAR HGB CONC 32.2 g/dl (32.0-37.0); MEAN CORPUSCULAR VOLUME 88.4 fl (82.0-101.0); MEAN PLATELET VOLUME 11.9 fl (7.4-10.4); MONOCYTE # 1.3 10^3/ul (0.3-0.9); MONOCYTES % 13.4 % (0.0-11.0); NEUTROPHIL # 7.7 10^3/ul (1.6-7.5); NEUTROPHILS % 78.2 % (39.0-77.0); PLATELET COUNT 161 10^3/UL (140-415); RED BLOOD COUNT 4.14 10^6/ul (4.20-5.40); RED CELL DISTRIBUTION WIDTH 15.6 % (11.5-14.5)
[2017-11-06] MEDS: AMLODIPINE 5 MG TAB PO ×2 (09:00→21:00)
[2017-11-06] MEDS: CALCIUM/VITAMIN D (500/200) TAB PO (09:00)
[2017-11-06] MEDS: LUBIPROSTONE 24 MCG CAP PO ×2 (09:00→21:00)
[2017-11-06] MEDS: POLYETHYLENE GLYCOL 17 GM PACKET PO (09:00)
[2017-11-06] MEDS: METOPROLOL 25 MG TAB PO ×2 (09:00→21:00)
[2017-11-06 09:05] LABS: ANION GAP 11 (8-16); BLOOD UREA NITROGEN 23 mg/dl (7-20); CALCIUM 8.8 mg/dl (8.4-10.2); CARBON DIOXIDE 39 mmol/L (21-31); CHLORIDE 97 mmol/L (97-110); CREATININE 0.68 mg/dl (0.44-1.00); GLUCOSE 111 mg/dl (70-220); POTASSIUM 3.5 mmol/L (3.5-5.1); SODIUM 143 mmol/L (135-144)
[2017-11-06] MEDS: CEFEPIME 1GM/50 ML (PMX) 50 ML IVPB ×2 (09:10→21:59)
[2017-11-06] MEDS: BUMETANIDE 1 MG INJ IV ×2 (09:11→15:43)
[2017-11-06] MEDS: SENNA TAB PO (21:00)
[2017-11-06] MEDS: ENOXAPARIN 60 MG/0.6 ML SYG SC (22:06)
[2017-11-07] MEDS: hydrALAzine 20 MG INJ IV ×2 (05:02→15:32)
[2017-11-07] MEDS: PANTOPRAZOLE (EC) 40 MG TAB PO (06:00)
[2017-11-07] MEDS: IBUPROFEN 600 MG TAB PO ×3 (06:00→22:00)
[2017-11-07] MEDS: LEVOTHYROXINE 150 MCG TAB PO (06:09)
[2017-11-07] MEDS: LIOTHYRONINE 5 MCG TAB PO (06:09)
[2017-11-07 07:34] LABS: ADD MAN DIFF? NO
[2017-11-07 07:40] LABS: BASOPHILS % 0.4 % (0.0-2.0); EOSINOPHILS # 0.2 10^3/ul (0.0-0.5); EOSINOPHILS % 1.9 % (0.0-7.0); HEMATOCRIT 38.5 % (37.0-47.0); HEMOGLOBIN 12.4 g/dl (12.0-16.0); LYMPHOCYTES # 0.8 10^3/ul (0.8-2.9); LYMPHOCYTES % 8.3 % (15.0-51.0); MEAN CORPUSCULAR HEMOGLOBIN 28.2 pg (29.0-33.0); MEAN CORPUSCULAR HGB CONC 32.2 g/dl (32.0-37.0); MEAN CORPUSCULAR VOLUME 87.5 fl (82.0-101.0); MEAN PLATELET VOLUME 12.8 fl (7.4-10.4); MONOCYTE # 1.2 10^3/ul (0.3-0.9); MONOCYTES % 12.5 % (0.0-11.0); NEUTROPHIL # 7.3 10^3/ul (1.6-7.5); NEUTROPHILS % 76.5 % (39.0-77.0); PLATELET COUNT 160 10^3/UL (140-415); RED CELL DISTRIBUTION WIDTH 15.7 % (11.5-14.5)
[2017-11-07 07:40] LABS: WHITE BLOOD COUNT 9.6 10^3/ul (4.8-10.8)
[2017-11-07 08:00] LABS: ANION GAP 10 (8-16); BLOOD UREA NITROGEN 22 mg/dl (7-20); CALCIUM 8.7 mg/dl (8.4-10.2); CARBON DIOXIDE 38 mmol/L (21-31); CHLORIDE 97 mmol/L (97-110); CREATININE 0.69 mg/dl (0.44-1.00); GLUCOSE 123 mg/dl (70-220); POTASSIUM 3.2 mmol/L (3.5-5.1); SODIUM 142 mmol/L (135-144)
[2017-11-07] MEDS: CALCIUM/VITAMIN D (500/200) TAB PO (09:00)
[2017-11-07] MEDS: METOPROLOL 25 MG TAB PO ×2 (09:00→21:00)
[2017-11-07] MEDS: AMLODIPINE 5 MG TAB PO ×2 (09:00→21:00)
[2017-11-07] MEDS: POLYETHYLENE GLYCOL 17 GM PACKET PO (09:00)
[2017-11-07] MEDS: LUBIPROSTONE 24 MCG CAP PO ×2 (09:00→21:00)
[2017-11-07] MEDS: CEFEPIME 1GM/50 ML (PMX) 50 ML IVPB (09:12)
[2017-11-07] MEDS: BUMETANIDE 1 MG INJ IV (09:12)
[2017-11-07] MEDS: ENOXAPARIN 60 MG/0.6 ML SYG SC ×2 (09:22→22:36)
[2017-11-07] MEDS: D5W-0.45 NACL + KCL 20 MEQ 1,000 ML IV (11:00)
[2017-11-07] MEDS: SENNA TAB PO (21:00)
[2017-11-07] MEDS: CLONIDINE 0.2 MG/24 HR PATCH TRANSDERM (21:40)
[2017-11-07] MEDS: morphine 2 MG INJ IV (22:42)
[2017-11-08] MEDS: D5W-0.45 NACL + KCL 20 MEQ 1,000 ML IV ×2 (05:33→15:17)
[2017-11-08] MEDS: IBUPROFEN 600 MG TAB PO ×3 (06:00→21:12)
[2017-11-08] MEDS: PANTOPRAZOLE (EC) 40 MG TAB PO (06:00)
[2017-11-08] MEDS: LIOTHYRONINE 5 MCG TAB PO (06:09)
[2017-11-08] MEDS: LEVOTHYROXINE 150 MCG TAB PO (06:09)
[2017-11-08 08:49] LABS: ADD MAN DIFF? NO
[2017-11-08 08:51] LABS: ABNORMAL IP MESSAGE 1; BASOPHIL # 0.1 10^3/ul (0.0-0.1); BASOPHILS % 0.6 % (0.0-2.0); EOSINOPHILS # 0.2 10^3/ul (0.0-0.5); EOSINOPHILS % 1.8 % (0.0-7.0); HEMATOCRIT 35.2 % (37.0-47.0); HEMOGLOBIN 11.3 g/dl (12.0-16.0); LYMPHOCYTES # 0.6 10^3/ul (0.8-2.9); LYMPHOCYTES % 6.7 % (15.0-51.0); MEAN CORPUSCULAR HEMOGLOBIN 28.8 pg (29.0-33.0); MEAN CORPUSCULAR HGB CONC 32.1 g/dl (32.0-37.0); MEAN CORPUSCULAR VOLUME 89.8 fl (82.0-101.0); MEAN PLATELET VOLUME 11.8 fl (7.4-10.4); NEUTROPHIL # 6.5 10^3/ul (1.6-7.5); NEUTROPHILS % 78.5 % (39.0-77.0); PLATELET COUNT 137 10^3/UL (140-415); RED BLOOD COUNT 3.92 10^6/ul (4.20-5.40); RED CELL DISTRIBUTION WIDTH 15.7 % (11.5-14.5)
[2017-11-08 08:51] LABS: WHITE BLOOD COUNT 8.3 10^3/ul (4.8-10.8)
[2017-11-08] MEDS: AMLODIPINE 5 MG TAB PO ×2 (09:00→21:00)
[2017-11-08] MEDS: CALCIUM/VITAMIN D (500/200) TAB PO (09:00)
[2017-11-08] MEDS: POLYETHYLENE GLYCOL 17 GM PACKET PO (09:00)
[2017-11-08] MEDS: LUBIPROSTONE 24 MCG CAP PO ×2 (09:00→21:00)
[2017-11-08] MEDS: BUMETANIDE 1 MG INJ IV (09:00)
[2017-11-08] MEDS: METOPROLOL 25 MG TAB PO ×2 (09:00→21:00)
[2017-11-08 09:01] LABS: POSITIVE DIFF @See below
[2017-11-08 09:21] LABS: BLOOD UREA NITROGEN 23 mg/dl (7-20); CALCIUM 8.3 mg/dl (8.4-10.2); CHLORIDE 98 mmol/L (97-110); CREATININE 0.71 mg/dl (0.44-1.00); GLUCOSE 111 mg/dl (70-220); POTASSIUM 3.4 mmol/L (3.5-5.1); SODIUM 142 mmol/L (135-144)
[2017-11-08 09:28] LABS: ANION GAP 8 (8-16); CARBON DIOXIDE 39 mmol/L (21-31)
[2017-11-08] MEDS: ENOXAPARIN 60 MG/0.6 ML SYG SC ×2 (10:12→21:10)
[2017-11-08] MEDS: hydrALAzine 20 MG INJ IV (15:18)
[2017-11-08] MEDS: POTASSIUM CHLORIDE 100 ML IVPB (17:36)
[2017-11-08] MEDS: SENNA TAB PO (21:00)
[2017-11-09] MEDS: ACETAMINOPHEN 1000MG/100ML IV 100 ML IVPB (00:38)
[2017-11-09] MEDS: D5W-0.45 NACL + KCL 20 MEQ 1,000 ML IV ×2 (02:21→20:45)
[2017-11-09] MEDS: PANTOPRAZOLE (EC) 40 MG TAB PO (05:56)
[2017-11-09] MEDS: IBUPROFEN 600 MG TAB PO ×3 (05:56→22:00)
[2017-11-09 06:14] LABS: ADD MAN DIFF? NO
[2017-11-09 06:18] LABS: BASOPHILS % 0.2 % (0.0-2.0); EOSINOPHILS % 0.4 % (0.0-7.0); HEMATOCRIT 33.6 % (37.0-47.0); HEMOGLOBIN 10.8 g/dl (12.0-16.0); LYMPHOCYTES # 0.8 10^3/ul (0.8-2.9); LYMPHOCYTES % 9.2 % (15.0-51.0); MEAN CORPUSCULAR HEMOGLOBIN 28.1 pg (29.0-33.0); MEAN CORPUSCULAR HGB CONC 32.1 g/dl (32.0-37.0); MEAN CORPUSCULAR VOLUME 87.3 fl (82.0-101.0); MEAN PLATELET VOLUME 12.8 fl (7.4-10.4); MONOCYTE # 1.2 10^3/ul (0.3-0.9); MONOCYTES % 14.2 % (0.0-11.0); NEUTROPHIL # 6.4 10^3/ul (1.6-7.5); NEUTROPHILS % 75.5 % (39.0-77.0); PLATELET COUNT 160 10^3/UL (140-415); RED BLOOD COUNT 3.85 10^6/ul (4.20-5.40); RED CELL DISTRIBUTION WIDTH 15.9 % (11.5-14.5)
[2017-11-09 06:18] LABS: WHITE BLOOD COUNT 8.5 10^3/ul (4.8-10.8)
[2017-11-09 06:55] LABS: ANION GAP 4 (8-16); BLOOD UREA NITROGEN 22 mg/dl (7-20); CARBON DIOXIDE 37 mmol/L (21-31); CHLORIDE 99 mmol/L (97-110); CREATININE 0.76 mg/dl (0.44-1.00); GLUCOSE 107 mg/dl (70-220); POTASSIUM 3.9 mmol/L (3.5-5.1); SODIUM 136 mmol/L (135-144)
[2017-11-09] MEDS: LEVOTHYROXINE 150 MCG TAB PO (07:00)
[2017-11-09] MEDS: LIOTHYRONINE 5 MCG TAB PO (07:00)
[2017-11-09] MEDS: LUBIPROSTONE 24 MCG CAP PO ×2 (08:16→20:09)
[2017-11-09] MEDS: METOPROLOL 25 MG TAB PO ×2 (08:16→20:09)
[2017-11-09] MEDS: POLYETHYLENE GLYCOL 17 GM PACKET PO (08:17)
[2017-11-09] MEDS: AMLODIPINE 5 MG TAB PO ×2 (08:17→20:10)
[2017-11-09] MEDS: CALCIUM/VITAMIN D (500/200) TAB PO (08:17)
[2017-11-09] MEDS: ENOXAPARIN 60 MG/0.6 ML SYG SC ×2 (08:20→20:46)
[2017-11-09] MEDS: BUMETANIDE 1 MG INJ IV (08:21)
[2017-11-09] MEDS: morphine 2 MG INJ IV (15:29)
[2017-11-09] MEDS: SENNA TAB PO (20:10)
[2017-11-09] MEDS: hydrALAzine 20 MG INJ IV (20:47)
[2017-11-10] MEDS: morphine 2 MG INJ IV ×3 (01:09→20:44)
[2017-11-10] MEDS: PANTOPRAZOLE 40 MG INJ IV (05:48)
[2017-11-10] MEDS: IBUPROFEN 600 MG TAB PO ×3 (05:48→22:00)
[2017-11-10] MEDS: LEVOTHYROXINE 150 MCG TAB PO (07:00)
[2017-11-10] MEDS: LIOTHYRONINE 5 MCG TAB PO (07:00)
[2017-11-10] MEDS: POLYETHYLENE GLYCOL 17 GM PACKET PO (08:14)
[2017-11-10] MEDS: CALCIUM/VITAMIN D (500/200) TAB PO (08:14)
[2017-11-10] MEDS: LUBIPROSTONE 24 MCG CAP PO ×2 (08:14→20:06)
[2017-11-10] MEDS: AMLODIPINE 5 MG TAB PO ×2 (08:31→20:07)
[2017-11-10] MEDS: METOPROLOL 25 MG TAB PO ×2 (08:31→20:07)
[2017-11-10] MEDS: BUMETANIDE 1 MG INJ IV (08:45)
[2017-11-10] MEDS: ENOXAPARIN 60 MG/0.6 ML SYG SC ×2 (08:47→20:36)
[2017-11-10] MEDS: D5W-0.45 NACL + KCL 20 MEQ 1,000 ML IV (10:29)
[2017-11-10] MEDS: SENNA TAB PO (20:07)
[2017-11-10] MEDS: hydrALAzine 20 MG INJ IV (20:45)
[2017-11-11] MEDS: D5W-0.45 NACL + KCL 20 MEQ 1,000 ML IV ×2 (00:48→15:06)
[2017-11-11] MEDS: PANTOPRAZOLE 40 MG INJ IV (05:29)
[2017-11-11] MEDS: morphine 2 MG INJ IV (05:30)
[2017-11-11] MEDS: IBUPROFEN 600 MG TAB PO ×3 (06:00→22:00)
[2017-11-11] MEDS: LEVOTHYROXINE 150 MCG TAB PO (06:27)
[2017-11-11] MEDS: LIOTHYRONINE 5 MCG TAB PO (06:27)
[2017-11-11] MEDS: LUBIPROSTONE 24 MCG CAP PO ×2 (08:18→20:20)
[2017-11-11] MEDS: POLYETHYLENE GLYCOL 17 GM PACKET PO (08:18)
[2017-11-11] MEDS: AMLODIPINE 5 MG TAB PO ×2 (08:18→20:22)
[2017-11-11] MEDS: METOPROLOL 25 MG TAB PO ×2 (08:18→20:20)
[2017-11-11] MEDS: CALCIUM/VITAMIN D (500/200) TAB PO (08:19)
[2017-11-11] MEDS: BUMETANIDE 1 MG INJ IV (08:26)
[2017-11-11] MEDS: ENOXAPARIN 60 MG/0.6 ML SYG SC ×2 (08:35→20:22)
[2017-11-11 08:53] LABS: ADD MAN DIFF? NO
[2017-11-11 08:59] LABS: WHITE BLOOD COUNT 10.4 10^3/ul (4.8-10.8)
[2017-11-11 08:59] LABS: ABNORMAL IP MESSAGE 1; BASOPHILS % 0.4 % (0.0-2.0); EOSINOPHILS % 0.3 % (0.0-7.0); HEMATOCRIT 34.2 % (37.0-47.0); HEMOGLOBIN 10.8 g/dl (12.0-16.0); LYMPHOCYTES # 0.7 10^3/ul (0.8-2.9); LYMPHOCYTES % 6.5 % (15.0-51.0); MEAN CORPUSCULAR HEMOGLOBIN 28.2 pg (29.0-33.0); MEAN CORPUSCULAR HGB CONC 31.6 g/dl (32.0-37.0); MEAN CORPUSCULAR VOLUME 89.3 fl (82.0-101.0); MEAN PLATELET VOLUME 13.1 fl (7.4-10.4); MONOCYTE # 0.9 10^3/ul (0.3-0.9); MONOCYTES % 8.4 % (0.0-11.0); NEUTROPHIL # 8.8 10^3/ul (1.6-7.5); NEUTROPHILS % 84.1 % (39.0-77.0); PLATELET COUNT 193 10^3/UL (140-415); RED BLOOD COUNT 3.83 10^6/ul (4.20-5.40); RED CELL DISTRIBUTION WIDTH 16.2 % (11.5-14.5)
[2017-11-11 09:09] LABS: POSITIVE DIFF @See below
[2017-11-11 09:29] LABS: ANION GAP 5 (8-16); BLOOD UREA NITROGEN 24 mg/dl (7-20); CALCIUM 8.4 mg/dl (8.4-10.2); CARBON DIOXIDE 35 mmol/L (21-31); CHLORIDE 99 mmol/L (97-110); CREATININE 0.92 mg/dl (0.44-1.00); GLUCOSE 114 mg/dl (70-220); POTASSIUM 4.3 mmol/L (3.5-5.1); SODIUM 135 mmol/L (135-144)
[2017-11-11 13:02] LABS: RETICULOCYTE COUNT # 0.057 X10^6 (0.020-0.110); RETICULOCYTE COUNT % 1.5 % (0.5-1.5)
[2017-11-11 13:02] LABS: RETICULOCYTE RBC 3.85
[2017-11-11 14:28] LABS: FOLATE > 20.0 ng/ml (2.8-20.0)
[2017-11-11] MEDS: hydrALAzine 20 MG INJ IV (17:05)
[2017-11-11] MEDS: DIGOXIN 500 MCG INJ IV (18:40)
[2017-11-11] MEDS: SENNA TAB PO (20:22)
[2017-11-12] MEDS: D5W-0.45 NACL + KCL 20 MEQ 1,000 ML IV ×2 (00:10→17:14)
[2017-11-12] MEDS: PANTOPRAZOLE 40 MG INJ IV (05:50)
[2017-11-12] MEDS: IBUPROFEN 600 MG TAB PO ×3 (05:57→21:07)
[2017-11-12] MEDS: LIOTHYRONINE 5 MCG TAB PO (06:16)
[2017-11-12] MEDS: LEVOTHYROXINE 150 MCG TAB PO (06:16)
[2017-11-12 07:23] LABS: ADD MAN DIFF? NO; BASOPHILS % 0.3 % (0.0-2.0); EOSINOPHILS # 0.1 10^3/ul (0.0-0.5); EOSINOPHILS % 0.9 % (0.0-7.0); HEMATOCRIT 31.7 % (37.0-47.0); HEMOGLOBIN 10.1 g/dl (12.0-16.0); LYMPHOCYTES # 0.7 10^3/ul (0.8-2.9); LYMPHOCYTES % 6.8 % (15.0-51.0); MEAN CORPUSCULAR HEMOGLOBIN 28.7 pg (29.0-33.0); MEAN CORPUSCULAR HGB CONC 31.9 g/dl (32.0-37.0); MEAN CORPUSCULAR VOLUME 90.1 fl (82.0-101.0); MEAN PLATELET VOLUME 12.3 fl (7.4-10.4); MONOCYTE # 0.9 10^3/ul (0.3-0.9); MONOCYTES % 8.7 % (0.0-11.0); NEUTROPHIL # 8.1 10^3/ul (1.6-7.5); NEUTROPHILS % 82.9 % (39.0-77.0); PLATELET COUNT 179 10^3/UL (140-415); RED BLOOD COUNT 3.52 10^6/ul (4.20-5.40); RED CELL DISTRIBUTION WIDTH 15.9 % (11.5-14.5)
[2017-11-12 07:23] LABS: WHITE BLOOD COUNT 9.8 10^3/ul (4.8-10.8)
[2017-11-12 07:43] LABS: ANION GAP 8 (8-16); BLOOD UREA NITROGEN 26 mg/dl (7-20); CALCIUM 8.4 mg/dl (8.4-10.2); CARBON DIOXIDE 33 mmol/L (21-31); CHLORIDE 100 mmol/L (97-110); CREATININE 0.93 mg/dl (0.44-1.00); GLUCOSE 114 mg/dl (70-220); POTASSIUM 4.7 mmol/L (3.5-5.1); SODIUM 136 mmol/L (135-144)
[2017-11-12] MEDS: LUBIPROSTONE 24 MCG CAP PO ×2 (09:00→20:45)
[2017-11-12] MEDS: AMLODIPINE 5 MG TAB PO ×2 (09:00→20:46)
[2017-11-12] MEDS: ENOXAPARIN 60 MG/0.6 ML SYG SC ×2 (09:00→21:07)
[2017-11-12] MEDS: METOPROLOL 25 MG TAB PO ×2 (09:00→20:47)
[2017-11-12] MEDS: POLYETHYLENE GLYCOL 17 GM PACKET PO (09:00)
[2017-11-12] MEDS: CALCIUM/VITAMIN D (500/200) TAB PO (09:00)
[2017-11-12] MEDS: ETOMIDATE 20 MG INJ (10:52)
[2017-11-12] MEDS: PROPOFOL 20 ML (10:52)
[2017-11-12] MEDS ORDERED: ONDANSETRON 4 MG INJ IV (11:00)
[2017-11-12] MEDS ORDERED: LABETALOL HCL 20MG INJ IV (11:00)
[2017-11-12] MEDS ORDERED: hydrALAzine 20 MG INJ IV (11:00)
[2017-11-12] MEDS: CEFAZOLIN 1 GM/50 ML (PMX) 50 ML IVPB ×2 (11:01)
[2017-11-12] MEDS: EPINEPHrine 0.1 MG/ML SYG (11:04)
[2017-11-12] MEDS: morphine 2 MG INJ IV (11:53)
[2017-11-12] MEDS: BARIUM SULF 2% 450 ML BTL (BERRY SMOOTHIE) PO (12:11)
[2017-11-12] MEDS: BUMETANIDE 1 MG INJ IV (12:48)
[2017-11-12] MEDS: SENNA TAB PO (20:46)
[2017-11-13] MEDS: LEVOTHYROXINE 150 MCG TAB PO (06:10)
[2017-11-13] MEDS: IBUPROFEN 600 MG TAB PO ×3 (06:10→20:22)
[2017-11-13] MEDS: PANTOPRAZOLE 40 MG INJ IV (06:10)
[2017-11-13] MEDS: LIOTHYRONINE 5 MCG TAB PO (06:10)
[2017-11-13] MEDS: BUMETANIDE 1 MG INJ IV (08:40)
[2017-11-13] MEDS: POLYETHYLENE GLYCOL 17 GM PACKET PO (08:41)
[2017-11-13] MEDS: AMLODIPINE 5 MG TAB PO ×2 (08:41→20:23)
[2017-11-13] MEDS: LUBIPROSTONE 24 MCG CAP PO ×2 (08:41→20:23)
[2017-11-13] MEDS: METOPROLOL 25 MG TAB PO ×2 (08:42→20:23)
[2017-11-13] MEDS: CALCIUM/VITAMIN D (500/200) TAB PO (08:42)
[2017-11-13] MEDS: ENOXAPARIN 60 MG/0.6 ML SYG SC ×2 (08:45→20:26)
[2017-11-13 08:49] LABS: ADD MAN DIFF? NO
[2017-11-13 09:00] LABS: WHITE BLOOD COUNT 8.3 10^3/ul (4.8-10.8)
[2017-11-13 09:00] LABS: ABNORMAL IP MESSAGE 1; BASOPHILS % 0.4 % (0.0-2.0); EOSINOPHILS # 0.2 10^3/ul (0.0-0.5); EOSINOPHILS % 2.4 % (0.0-7.0); HEMATOCRIT 31.3 % (37.0-47.0); HEMOGLOBIN 9.7 g/dl (12.0-16.0); LYMPHOCYTES # 0.7 10^3/ul (0.8-2.9); LYMPHOCYTES % 8.6 % (15.0-51.0); MEAN CORPUSCULAR HEMOGLOBIN 28.4 pg (29.0-33.0); MEAN CORPUSCULAR VOLUME 91.8 fl (82.0-101.0); MEAN PLATELET VOLUME 13.4 fl (7.4-10.4); MONOCYTE # 0.5 10^3/ul (0.3-0.9); MONOCYTES % 6.4 % (0.0-11.0); NEUTROPHIL # 6.8 10^3/ul (1.6-7.5); NEUTROPHILS % 81.8 % (39.0-77.0); PLATELET COUNT 152 10^3/UL (140-415); RED BLOOD COUNT 3.41 10^6/ul (4.20-5.40); RED CELL DISTRIBUTION WIDTH 15.9 % (11.5-14.5)
[2017-11-13 09:04] LABS: POSITIVE DIFF @See below
[2017-11-13] MEDS: D5W-0.45 NACL + KCL 20 MEQ 1,000 ML IV (09:07)
[2017-11-13 09:26] LABS: ANION GAP 8 (8-16); BLOOD UREA NITROGEN 27 mg/dl (7-20); CALCIUM 8.1 mg/dl (8.4-10.2); CARBON DIOXIDE 31 mmol/L (21-31); CHLORIDE 99 mmol/L (97-110); CREATININE 0.87 mg/dl (0.44-1.00); GLUCOSE 119 mg/dl (70-220); POTASSIUM 5.1 mmol/L (3.5-5.1); SODIUM 133 mmol/L (135-144)
[2017-11-13] MEDS ORDERED: morphine LIQ (10 MG/5 ML) CUP PO (15:30)
[2017-11-13] MEDS: SENNA TAB PO (20:22)
[2017-11-14] MEDS: PANTOPRAZOLE 40 MG INJ IV (04:56)
[2017-11-14] MEDS: IBUPROFEN 600 MG TAB PO ×3 (04:56→20:29)
[2017-11-14] MEDS: LIOTHYRONINE 5 MCG TAB PO (04:56)
[2017-11-14] MEDS: LEVOTHYROXINE 150 MCG TAB PO (04:59)
[2017-11-14] MEDS: LUBIPROSTONE 24 MCG CAP PO ×2 (08:19→20:29)
[2017-11-14] MEDS: CALCIUM/VITAMIN D (500/200) TAB PO (08:19)
[2017-11-14] MEDS: BUMETANIDE 1 MG INJ IV (08:20)
[2017-11-14] MEDS: AMLODIPINE 5 MG TAB PO ×2 (08:20→20:29)
[2017-11-14] MEDS: METOPROLOL 25 MG TAB PO ×2 (08:20→20:29)
[2017-11-14] MEDS: POLYETHYLENE GLYCOL 17 GM PACKET PO (08:20)
[2017-11-14] MEDS: ENOXAPARIN 60 MG/0.6 ML SYG SC ×2 (08:26→20:32)
[2017-11-14 09:48] LABS: ADD MAN DIFF? NO
[2017-11-14 09:54] LABS: WHITE BLOOD COUNT 7.3 10^3/ul (4.8-10.8)
[2017-11-14 09:54] LABS: BASOPHILS % 0.4 % (0.0-2.0); EOSINOPHILS # 0.1 10^3/ul (0.0-0.5); EOSINOPHILS % 1.9 % (0.0-7.0); HEMATOCRIT 30.8 % (37.0-47.0); HEMOGLOBIN 9.4 g/dl (12.0-16.0); LYMPHOCYTES # 0.6 10^3/ul (0.8-2.9); LYMPHOCYTES % 8.2 % (15.0-51.0); MEAN CORPUSCULAR HEMOGLOBIN 27.6 pg (29.0-33.0); MEAN CORPUSCULAR HGB CONC 30.5 g/dl (32.0-37.0); MEAN CORPUSCULAR VOLUME 90.6 fl (82.0-101.0); MEAN PLATELET VOLUME 12.8 fl (7.4-10.4); MONOCYTE # 0.6 10^3/ul (0.3-0.9); MONOCYTES % 8.6 % (0.0-11.0); NEUTROPHIL # 5.9 10^3/ul (1.6-7.5); NEUTROPHILS % 80.2 % (39.0-77.0); PLATELET COUNT 159 10^3/UL (140-415); RED CELL DISTRIBUTION WIDTH 15.5 % (11.5-14.5)
[2017-11-14 10:19] LABS: ANION GAP 9 (8-16); BLOOD UREA NITROGEN 31 mg/dl (7-20); CALCIUM 8.1 mg/dl (8.4-10.2); CARBON DIOXIDE 32 mmol/L (21-31); CHLORIDE 99 mmol/L (97-110); CREATININE 0.95 mg/dl (0.44-1.00); GLUCOSE 125 mg/dl (70-220); POTASSIUM 4.9 mmol/L (3.5-5.1); SODIUM 135 mmol/L (135-144)
[2017-11-14] MEDS: SENNA TAB PO (20:29)
[2017-11-14] MEDS: CLONIDINE 0.2 MG/24 HR PATCH TRANSDERM (20:30)
[2017-11-14] MEDS: traMADol 50 MG TAB PO (23:40)
[2017-11-15] MEDS: IBUPROFEN 600 MG TAB PO ×3 (05:30→21:16)
[2017-11-15] MEDS: LEVOTHYROXINE 150 MCG TAB PO (05:30)
[2017-11-15] MEDS: PANTOPRAZOLE 40 MG INJ IV (05:30)
[2017-11-15] MEDS: LIOTHYRONINE 5 MCG TAB PO (05:30)
[2017-11-15 07:33] LABS: ADD MAN DIFF? NO
[2017-11-15 07:39] LABS: BASOPHILS % 0.4 % (0.0-2.0); EOSINOPHILS # 0.1 10^3/ul (0.0-0.5); EOSINOPHILS % 1.6 % (0.0-7.0); HEMATOCRIT 25.4 % (37.0-47.0); HEMOGLOBIN 7.7 g/dl (12.0-16.0); LYMPHOCYTES # 0.8 10^3/ul (0.8-2.9); LYMPHOCYTES % 11.2 % (15.0-51.0); MEAN CORPUSCULAR HEMOGLOBIN 27.6 pg (29.0-33.0); MEAN CORPUSCULAR HGB CONC 30.3 g/dl (32.0-37.0); MEAN PLATELET VOLUME 12.2 fl (7.4-10.4); MONOCYTE # 0.7 10^3/ul (0.3-0.9); MONOCYTES % 9.2 % (0.0-11.0); NEUTROPHIL # 5.4 10^3/ul (1.6-7.5); PLATELET COUNT 166 10^3/UL (140-415); RED BLOOD COUNT 2.79 10^6/ul (4.20-5.40); RED CELL DISTRIBUTION WIDTH 15.9 % (11.5-14.5)
[2017-11-15 07:39] LABS: WHITE BLOOD COUNT 7.1 10^3/ul (4.8-10.8)
[2017-11-15 07:56] LABS: ANION GAP 6 (8-16); BLOOD UREA NITROGEN 36 mg/dl (7-20); CALCIUM 8.1 mg/dl (8.4-10.2); CARBON DIOXIDE 32 mmol/L (21-31); CHLORIDE 99 mmol/L (97-110); CREATININE 0.92 mg/dl (0.44-1.00); GLUCOSE 134 mg/dl (70-220); SODIUM 132 mmol/L (135-144)
[2017-11-15] MEDS: METOPROLOL 25 MG TAB PO ×2 (08:19→21:00)
[2017-11-15] MEDS: CALCIUM/VITAMIN D (500/200) TAB PO (08:22)
[2017-11-15] MEDS: BUMETANIDE 1 MG INJ IV (08:23)
[2017-11-15] MEDS: LUBIPROSTONE 24 MCG CAP PO (08:24)
[2017-11-15] MEDS: POLYETHYLENE GLYCOL 17 GM PACKET PO (08:24)
[2017-11-15] MEDS: AMLODIPINE 5 MG TAB PO ×2 (08:25→21:15)
[2017-11-15] MEDS: ENOXAPARIN 60 MG/0.6 ML SYG SC (08:39)
[2017-11-15] MEDS: DOCUSATE SODIUM 100 MG CAP PO (09:58)
[2017-11-15] MEDS: traMADol 50 MG TAB PO (09:58)
[2017-11-15 17:39] LABS: PLATELET COUNT 160 10^3/UL (140-415)
[2017-11-15 17:50] LABS: INR 1.07; PT RATIO 1.1
[2017-11-15 17:55] LABS: PARTIAL THROMBOPLASTIN TIME 57.7 Sec (25.0-35.0)
[2017-11-15 18:10] LABS: THROMBIN TIME 48.1 SEC (13.8-19.1)
[2017-11-15] MEDS: BISACODYL 10 MG SUPP PR (18:54)
[2017-11-15] MEDS: SENNA TAB PO (21:15)
[2017-11-16] MEDS ORDERED: ALBUTEROL/IPRATROPIUM (NEB) 3 ML AMP HHN (06:00)
[2017-11-16] MEDS: PANTOPRAZOLE 40 MG INJ IV (06:00)
[2017-11-16] MEDS: IBUPROFEN 600 MG TAB PO ×3 (06:00→21:43)
[2017-11-16 06:11] LABS: ADD MAN DIFF? NO
[2017-11-16 06:18] LABS: WHITE BLOOD COUNT 23.7 10^3/ul (4.8-10.8)
[2017-11-16 06:18] LABS: ABNORMAL IP MESSAGE 1; BASOPHILS % 0.1 % (0.0-2.0); HEMATOCRIT 18.9 % (37.0-47.0); LYMPHOCYTES # 1.3 10^3/ul (0.8-2.9); LYMPHOCYTES % 5.6 % (15.0-51.0); MEAN CORPUSCULAR HEMOGLOBIN 28.8 pg (29.0-33.0); MEAN CORPUSCULAR HGB CONC 32.3 g/dl (32.0-37.0); MEAN CORPUSCULAR VOLUME 89.2 fl (82.0-101.0); MEAN PLATELET VOLUME 12.2 fl (7.4-10.4); MONOCYTE # 1.8 10^3/ul (0.3-0.9); MONOCYTES % 7.5 % (0.0-11.0); NEUTROPHIL # 20.4 10^3/ul (1.6-7.5); NUCLEATED RED BLOOD CELLS% 0.1 /100WBC (0.0-0.0); PLATELET COUNT 143 10^3/UL (140-415); RED BLOOD COUNT 2.12 10^6/ul (4.20-5.40); RED CELL DISTRIBUTION WIDTH 16.9 % (11.5-14.5)
[2017-11-16 06:54] LABS: ANION GAP 13 (8-16); BLOOD UREA NITROGEN 42 mg/dl (7-20); CALCIUM 8.3 mg/dl (8.4-10.2); CARBON DIOXIDE 31 mmol/L (21-31); CHLORIDE 96 mmol/L (97-110); CREATININE 1.06 mg/dl (0.44-1.00); GLUCOSE 153 mg/dl (70-220); SODIUM 134 mmol/L (135-144)
[2017-11-16 06:57] LABS: HEMOGLOBIN 6.1 g/dl (12.0-16.0); POSITIVE DIFF @See below
[2017-11-16 06:58] LABS: PATH REVIEW? YES
[2017-11-16] MEDS: LIOTHYRONINE 5 MCG TAB PO (07:00)
[2017-11-16] MEDS ORDERED: ETOMIDATE 20 MG INJ (07:00)
[2017-11-16] MEDS: LEVOTHYROXINE 150 MCG TAB PO (07:00)
[2017-11-16] MEDS ORDERED: NORepinephrine 8MG/250 ML BAG (07:00)
[2017-11-16] MEDS ORDERED: SUCCINYLCHOLINE CHLORIDE 100 MG/5 ML SYG IV (07:00)
[2017-11-16 07:07] LABS: POTASSIUM 5.6 mmol/L (3.5-5.1)
[2017-11-16] MEDS ORDERED: PHENYLephrine 20MG IN 250 ML 250 ML ×2 (08:02→11:52)
[2017-11-16] MEDS: SOD CHLORIDE 0.9% 500 ML IV (08:34)
[2017-11-16 08:37] LABS: ANISOCYTOSIS 1+ (0-0); BAND NEUTROPHILS #M 7.1 10^3/ul (0.0-0.6); BAND NEUTROPHILS % (M) 30 % (0-4); BURR CELLS 2+ (0-0); EOSINOPHILS % (M) 1 % (0-7); GIANT THROMBO% (M) 1 % (0-0); LYMPHOCYTES #M 1.1 10^3/ul (0.8-2.9); LYMPHOCYTES % (M) 5 % (15-51); MONOCYTE #M 0.4 10^3/ul (0.3-0.9); MONOCYTES % (M) 2 % (0-11); MYELOCYTES #M 0.2 10^3/ul (0.0-0.0); MYELOCYTES % (M) 1 % (0-0); OVALOCYTES 1+ (0-0); PLATELET ESTIMATE NORMAL; POIKILOCYTOSIS 2+ (0-0); POLYCHROMASIA 1+ (0-0); SEG NEUT #M 16.1 10^3/ul (1.6-7.5); SEGMENTED NEUTROPHILS (M) % 61 % (39-77); SMUDGE%M 3 % (0-0)
[2017-11-16 08:49] LABS: AADO2 Arterial 521.1 mmHg (7.0-24.0); Arterial Base Excess 5.5 mmol/L (-3.0-3); Arterial Blood Gas Oxygen Sat 98.2 mmHG (95.0-100.0); Arterial COHb 0.5 % (0.0-3.0); Arterial Fraction of Oxyhgb 97.6 % (93.0-99.0); Arterial HCO3 32.2 mmol/L (22.0-26.0); Arterial MetHb 0.1 % (0.0-1.5); Arterial Total Hemglobin 6.8 g/dl (12.0-18.0); Arterial pCO2 63.4 mmhg (35-45); MODE MASK - NRB; Site Right Radial
[2017-11-16] MEDS: POLYETHYLENE GLYCOL 17 GM PACKET PO (09:00)
[2017-11-16] MEDS: METOPROLOL 25 MG TAB PO ×2 (09:00→20:34)
[2017-11-16] MEDS: AMLODIPINE 5 MG TAB PO ×2 (09:00→20:34)
[2017-11-16] MEDS: CALCIUM/VITAMIN D (500/200) TAB PO (09:00)
[2017-11-16] MEDS: BUMETANIDE 1 MG INJ IV (09:00)
[2017-11-16] MEDS: MIDAZOLAM (DRIP) 50 mg/50 mL 50 ML IV ×2 (09:26→18:51)
[2017-11-16] MEDS: FENTAnyl (DRIP) 1000 mcg/100mL 100 ML IV (09:26)
[2017-11-16] MEDS: PHENYLephrine 40 MG in DEXTROSE 5% 496 ML IV (09:29)
[2017-11-16 09:54] LABS: ADD UMIC YES; UR ASCORBIC ACID NEGATIVE (NEGATIVE); UR BACTERIA FEW /HPF (NONE SEEN); UR BILIRUBIN (Dip) NEGATIVE (NEGATIVE); UR BLOOD (Dip) 1+ mg/dL (NEGATIVE); UR CLARITY TURBID (CLEAR); UR COLOR AMBER (YELLOW); UR GLUCOSE (Dip) NEGATIVE (NEGATIVE); UR HYALINE CAST FEW /HPF (NONE SEEN); UR KETONES (Dip) NEGATIVE (NEGATIVE); UR LEUKOCYTE ESTERASE (Dip) NEGATIVE Leu/ul (NEGATIVE); UR MUCUS MANY /HPF (NONE SEEN); UR NITRITE (Dip) NEGATIVE (NEGATIVE); UR RBC 3 /HPF (0-5); UR SPECIFIC GRAVITY (Dip) 1.012 (1.003-1.030); UR SQUAMOUS EPITHELIAL CELL MANY /HPF (FEW); UR TOTAL PROTEIN (Dip) 1+ mg/dl (NEGATIVE); UR UROBILINOGEN (Dip) 1+ mg/dL (NEGATIVE); UR WBC 24 /HPF (0-5); UR WBC CAST FEW /HPF (NONE SEEN)
[2017-11-16 10:08] LABS: Allen Test ACCEPTAB; Arterial Base Excess -2.3 mmol/L (-3.0-3); Arterial Blood Gas Oxygen Sat 99.1 mmHG (95.0-100.0); Arterial COHb 0.3 % (0.0-3.0); Arterial Fraction of Oxyhgb 98.7 % (93.0-99.0); Arterial HCO3 23.8 mmol/L (22.0-26.0); Arterial MetHb 0.1 % (0.0-1.5); Arterial Total Hemglobin 8.7 g/dl (12.0-18.0); Arterial pCO2 47.9 mmhg (35-45); MODE VENT - AC; Site Left Radial
[2017-11-16] MEDS: NA POLYST SULFON 15 GM/60 ML BTL PO (11:00)
[2017-11-16] MEDS: VASOPRESSIN 60 UNIT in DEXTROSE 5% 57 ML IV ×2 (11:24→21:08)
[2017-11-16] MEDS: SOD CHLORIDE 0.9% 1,000 ML IV ×2 (11:27→21:43)
[2017-11-16] MEDS: PHENYLephrine 160 MG in DEXTROSE 5% 484 ML IV ×2 (13:06→21:08)
[2017-11-16] MEDS: ALBUMIN HUMAN 25% 100 ML IV (13:43)
[2017-11-16] MEDS ORDERED: VANCOMYCIN IV PER PHARMACY XX (14:00)
[2017-11-16 14:45] LABS: ADD MAN DIFF? NO
[2017-11-16 14:49] LABS: WHITE BLOOD COUNT 8.3 10^3/ul (4.8-10.8)
[2017-11-16 14:49] LABS: ABNORMAL IP MESSAGE 1; BASOPHILS % 0.1 % (0.0-2.0); EOSINOPHILS % 0.1 % (0.0-7.0); HEMATOCRIT 32.2 % (37.0-47.0); HEMOGLOBIN 10.6 g/dl (12.0-16.0); LYMPHOCYTES # 1.1 10^3/ul (0.8-2.9); LYMPHOCYTES % 12.8 % (15.0-51.0); MEAN CORPUSCULAR HEMOGLOBIN 29.2 pg (29.0-33.0); MEAN CORPUSCULAR HGB CONC 32.9 g/dl (32.0-37.0); MEAN CORPUSCULAR VOLUME 88.7 fl (82.0-101.0); MONOCYTE # 0.3 10^3/ul (0.3-0.9); MONOCYTES % 3.9 % (0.0-11.0); NEUTROPHIL # 6.8 10^3/ul (1.6-7.5); NEUTROPHILS % 82.5 % (39.0-77.0); NUCLEATED RED BLOOD CELLS # 0.1 10^3/ul (0.0-0.0); NUCLEATED RED BLOOD CELLS% 0.6 /100WBC (0.0-0.0); PLATELET COUNT 79 10^3/UL (140-415); RED BLOOD COUNT 3.63 10^6/ul (4.20-5.40); RED CELL DISTRIBUTION WIDTH 15.9 % (11.5-14.5)
[2017-11-16 14:53] LABS: POSITIVE DIFF @See below
[2017-11-16 15:08] LABS: ANION GAP 17 (8-16); CARBON DIOXIDE 24 mmol/L (21-31); CHLORIDE 96 mmol/L (97-110); POTASSIUM 4.6 mmol/L (3.5-5.1); SODIUM 132 mmol/L (135-144)
[2017-11-16] MEDS: HYDROCORTISONE 100 MG INJ IV ×2 (15:58→21:43)
[2017-11-16] MEDS: VANCOMYCIN 1.25 GM in SOD CHLORIDE 0.9% 250 ML IVPB (15:59)
[2017-11-16] MEDS: PIPER-TAZO 2.25 GM (PMX) 50 ML IVPB (17:27)
[2017-11-16 17:43] LABS: INR 1.56; PT RATIO 1.5
[2017-11-16 17:44] LABS: PARTIAL THROMBOPLASTIN TIME 57.6 Sec (25.0-35.0)
[2017-11-16] MEDS: SENNA TAB PO (20:35)
[2017-11-16] MEDS: LEVOFLOXACIN 500MG/D5W (PMX) 100 ML IVPB (20:55)
[2017-11-16 20:59] LABS: ALANINE AMINOTRANSFERASE 25 IU/L (13-69); ALBUMIN 1.8 g/dl (3.3-4.9); ALKALINE PHOSPHATASE 30 IU/L (42-121); ASPARTATE AMINO TRANSFERASE 63 IU/L (15-46); BILIRUBIN,INDIRECT 0.3 mg/dl (0-1.1); BILIRUBIN,TOTAL 0.3 mg/dl (0.2-1.3); TOTAL PROTEIN 3.7 g/dl (6.1-8.1)
[2017-11-16 21:20] LABS: LACTIC ACID 6.9 mmol/L (0.5-2.0)
[2017-11-17] MEDS: PIPER-TAZO 2.25 GM (PMX) 50 ML IVPB ×4 (00:20→18:06)
[2017-11-17 01:10] LABS: LACTIC ACID 7.4 mmol/L (0.5-2.0)
[2017-11-17] MEDS: PHENYLephrine 160 MG in DEXTROSE 5% 484 ML IV ×2 (03:26→20:56)
[2017-11-17 04:21] LABS: LACTIC ACID 6.8 mmol/L (0.5-2.0)
[2017-11-17 05:07] LABS: AADO2 Arterial 255.6 mmHg (7.0-24.0); Allen Test ACCEPTAB; Arterial Blood Gas Oxygen Sat 95.4 mmHG (95.0-100.0); Arterial COHb 0.6 % (0.0-3.0); Arterial Fraction of Oxyhgb 94.7 % (93.0-99.0); Arterial MetHb 0.1 % (0.0-1.5); Arterial Total Hemglobin 8.5 g/dl (12.0-18.0); Arterial pCO2 22.7 mmhg (35-45); MODE VENT - AC; Site Right Radial
[2017-11-17] MEDS: HYDROCORTISONE 100 MG INJ IV ×3 (05:15→21:46)
[2017-11-17] MEDS: IBUPROFEN 600 MG TAB PO ×2 (05:16→14:22)
[2017-11-17] MEDS: PANTOPRAZOLE 40 MG INJ IV (05:16)
[2017-11-17 05:54] LABS: ABNORMAL IP MESSAGE 1; HEMATOCRIT 22.3 % (37.0-47.0); HEMOGLOBIN 7.6 g/dl (12.0-16.0); MEAN CORPUSCULAR HGB CONC 34.1 g/dl (32.0-37.0); MEAN CORPUSCULAR VOLUME 85.1 fl (82.0-101.0); MEAN PLATELET VOLUME 13.6 fl (7.4-10.4); NUCLEATED RED BLOOD CELLS% 0.1 /100WBC (0.0-0.0); PLATELET COUNT 67 10^3/UL (140-415); RED BLOOD COUNT 2.62 10^6/ul (4.20-5.40); RED CELL DISTRIBUTION WIDTH 15.9 % (11.5-14.5)
[2017-11-17 05:54] LABS: WHITE BLOOD COUNT 19.9 10^3/ul (4.8-10.8)
[2017-11-17 05:57] LABS: ANION GAP 17 (8-16); BLOOD UREA NITROGEN 42 mg/dl (7-20); CARBON DIOXIDE 18 mmol/L (21-31); CHLORIDE 96 mmol/L (97-110); CREATININE 1.19 mg/dl (0.44-1.00); GLUCOSE 181 mg/dl (70-220); POTASSIUM 4.7 mmol/L (3.5-5.1); SODIUM 126 mmol/L (135-144)
[2017-11-17 06:09] LABS: POSITIVE DIFF @See below
[2017-11-17 06:10] LABS: ADD MAN DIFF? YES
[2017-11-17 06:23] LABS: LACTIC ACID 6.4 mmol/L (0.5-2.0)
[2017-11-17] MEDS: LIOTHYRONINE 5 MCG TAB PO (06:26)
[2017-11-17] MEDS: LEVOTHYROXINE 150 MCG TAB PO (06:27)
[2017-11-17 07:39] LABS: IMMEDIATE SPIN CROSSMATCH 1 6
[2017-11-17 07:47] LABS: BAND NEUTROPHILS #M 10.1 10^3/ul (0.0-0.6); BAND NEUTROPHILS % (M) 51 % (0-4); BURR CELLS 2+ (0-0); ECHINOCYTOSIS 1+ (0-0); GIANT THROMBO% (M) 4 % (0-0); LYMPHOCYTES #M 0.1 10^3/ul (0.8-2.9); LYMPHOCYTES % (M) 1 % (15-51); METAMYELOCYTES #M 0.5 10^3/ul (0.0-0.0); METAMYELOCYTES %M 3 % (0-0); MONOCYTE #M 0.1 10^3/ul (0.3-0.9); MONOCYTES % (M) 1 % (0-11); MYELOCYTES #M 0.5 10^3/ul (0.0-0.0); MYELOCYTES % (M) 3 % (0-0); OVALOCYTES 2+ (0-0); PLATELET ESTIMATE INCREASED; PLATELET MORPHOLOGY COMMENT @See below; POIKILOCYTOSIS 3+ (0-0); POLYCHROMASIA 1+ (0-0); SCHISTOCYTES 1+ (0-0); SEG NEUT #M 10.2 10^3/ul (1.6-7.5); SEGMENTED NEUTROPHILS (M) % 41 % (39-77); SMUDGE%M 3 % (0-0)
[2017-11-17] MEDS: METOPROLOL 25 MG TAB PO (08:37)
[2017-11-17] MEDS: POLYETHYLENE GLYCOL 17 GM PACKET PO (08:37)
[2017-11-17] MEDS: AMLODIPINE 5 MG TAB PO (08:37)
[2017-11-17] MEDS: SOD CHLORIDE 0.9% 1,000 ML IV ×4 (08:47→16:03)
[2017-11-17] MEDS: VASOPRESSIN 60 UNIT in DEXTROSE 5% 57 ML IV ×2 (08:58→21:46)
[2017-11-17] MEDS: BUMETANIDE 1 MG INJ IV (10:27)
[2017-11-17] MEDS: CALCIUM/VITAMIN D (500/200) TAB PO (10:27)
[2017-11-17 15:13] LABS: LACTIC ACID 5.7 mmol/L (0.5-2.0)
[2017-11-17] MEDS ORDERED: VANCOMYCIN 750 MG in SOD CHLORIDE 0.9% 150 ML IVPB (16:00)
[2017-11-17] MEDS: SENNA TAB PO (19:58)
[2017-11-17] MEDS: LEVOFLOXACIN 250MG/D5W (PMX) 50 ML IVPB (20:49)
[2017-11-17] MEDS: FENTAnyl (DRIP) 1000 mcg/100mL 100 ML IV (20:56)
[2017-11-17] MEDS: IBUPROFEN 600 MG TAB PEG (21:46)
[2017-11-17 22:08] LABS: LACTIC ACID 5.1 mmol/L (0.5-2.0)
[2017-11-18] MEDS: PIPER-TAZO 2.25 GM (PMX) 50 ML IVPB ×4 (00:19→21:38)
[2017-11-18] MEDS: VANCOMYCIN HCL 250 MG/5ML POSYG GTB ×4 (01:01→17:45)
[2017-11-18] MEDS: CASPOFUNGIN 70 MG in SOD CHLORIDE 0.9% 250 ML IVPB (01:02)
[2017-11-18] MEDS: VASOPRESSIN 60 UNIT in DEXTROSE 5% 57 ML IV ×2 (01:35→21:35)
[2017-11-18] MEDS: MIDAZOLAM (DRIP) 50 mg/50 mL 50 ML IV (03:23)
[2017-11-18 04:24] LABS: ABNORMAL IP MESSAGE 1; HEMATOCRIT 23.3 % (37.0-47.0); HEMOGLOBIN 8.1 g/dl (12.0-16.0); MEAN CORPUSCULAR HEMOGLOBIN 30.1 pg (29.0-33.0); MEAN CORPUSCULAR HGB CONC 34.8 g/dl (32.0-37.0); MEAN CORPUSCULAR VOLUME 86.6 fl (82.0-101.0); MEAN PLATELET VOLUME 13.6 fl (7.4-10.4); NUCLEATED RED BLOOD CELLS% 0.2 /100WBC (0.0-0.0); PLATELET COUNT 44 10^3/UL (140-415); RED BLOOD COUNT 2.69 10^6/ul (4.20-5.40); RED CELL DISTRIBUTION WIDTH 16.3 % (11.5-14.5)
[2017-11-18 04:24] LABS: WHITE BLOOD COUNT 36.9 10^3/ul (4.8-10.8)
[2017-11-18 04:29] LABS: ADD MAN DIFF? YES; POSITIVE DIFF @See below
[2017-11-18 04:41] LABS: ANION GAP 15 (8-16); BLOOD UREA NITROGEN 44 mg/dl (7-20); CARBON DIOXIDE 20 mmol/L (21-31); CHLORIDE 95 mmol/L (97-110); CREATININE 1.32 mg/dl (0.44-1.00); GLUCOSE 135 mg/dl (70-220); POTASSIUM 4.7 mmol/L (3.5-5.1); SODIUM 125 mmol/L (135-144)
[2017-11-18] MEDS: SOD CHLORIDE 0.9% 1,000 ML IV ×2 (04:52→16:21)
[2017-11-18 04:57] LABS: LACTIC ACID 3.7 mmol/L (0.5-2.0)
[2017-11-18 05:01] LABS: AADO2 Arterial 397.4 mmHg (7.0-24.0); Allen Test ACCEPTAB; Arterial Base Excess -6.6 mmol/L (-3.0-3); Arterial Blood Gas Oxygen Sat 93.2 mmHG (95.0-100.0); Arterial COHb 0.5 % (0.0-3.0); Arterial Fraction of Oxyhgb 92.5 % (93.0-99.0); Arterial HCO3 18.1 mmol/L (22.0-26.0); Arterial MetHb 0.2 % (0.0-1.5); Arterial Total Hemglobin 8.9 g/dl (12.0-18.0); MODE VENT - AC; Site Right Radial
[2017-11-18] MEDS: PANTOPRAZOLE 40 MG INJ IV (05:39)
[2017-11-18] MEDS: HYDROCORTISONE 100 MG INJ IV ×3 (05:40→21:39)
[2017-11-18] MEDS: IBUPROFEN 600 MG TAB PEG ×3 (05:40→21:38)
[2017-11-18] MEDS: LIOTHYRONINE 5 MCG TAB PEG (06:46)
[2017-11-18] MEDS: LEVOTHYROXINE 150 MCG TAB PEG (06:46)
[2017-11-18] MEDS: CALCIUM/VITAMIN D (500/200) TAB PEG (08:26)
[2017-11-18] MEDS: BUMETANIDE 1 MG INJ IV (08:26)
[2017-11-18] MEDS: METOCLOPRAMIDE 10 MG INJ IV ×3 (08:26→17:45)
[2017-11-18] MEDS: POLYETHYLENE GLYCOL 17 GM PACKET PEG (08:27)
[2017-11-18 09:06] LABS: ANISOCYTOSIS 2+ (0-0); BAND NEUTROPHILS #M 18.8 10^3/ul (0.0-0.6); BAND NEUTROPHILS % (M) 51 % (0-4); ERYTHROBLAST% (NRBC) (M) 1 % (0-0); GIANT THROMBO% (M) 1 % (0-0); LYMPHOCYTES #M 1.1 10^3/ul (0.8-2.9); LYMPHOCYTES % (M) 3 % (15-51); METAMYELOCYTES #M 0.7 10^3/ul (0.0-0.0); METAMYELOCYTES %M 2 % (0-0); MICROCYTOSIS 1+ (0-0); MONOCYTE #M 0.3 10^3/ul (0.3-0.9); MONOCYTES % (M) 1 % (0-11); MYELOCYTES #M 0.3 10^3/ul (0.0-0.0); MYELOCYTES % (M) 1 % (0-0); PLASMA CELLS #M 0.3 10^3/ul (0.0-0.0); PLASMAC%(M) 1 % (0); PLATELET ESTIMATE INCREASED; POIKILOCYTOSIS 3+ (0-0); POLYCHROMASIA 3+ (0-0); SEG NEUT #M 22.4 10^3/ul (1.6-7.5); SEGMENTED NEUTROPHILS (M) % 42 % (39-77); SMUDGE%M 5 % (0-0)
[2017-11-18] MEDS: [UNRECOGNIZED DRUG - REMARK] XX (10:30)
[2017-11-18 11:13] LABS: VANCOMYCIN,RANDOM 8.4 ug/ml
[2017-11-18] MEDS: VANCOMYCIN 1 GM 250 ML IVPB (16:37)
[2017-11-18] MEDS: SENNA TAB PEG (20:11)
[2017-11-19] MEDS: VANCOMYCIN HCL 250 MG/5ML POSYG GTB ×5 (00:56→23:44)
[2017-11-19] MEDS: CASPOFUNGIN 50 MG in SOD CHLORIDE 0.9% 250 ML IVPB (00:57)
[2017-11-19] MEDS: METOCLOPRAMIDE 10 MG INJ IV ×5 (00:57→23:44)
[2017-11-19 03:52] LABS: ADD MAN DIFF? NO
[2017-11-19 04:12] LABS: ABNORMAL IP MESSAGE 1; BASOPHIL # 0.1 10^3/ul (0.0-0.1); BASOPHILS % 0.4 % (0.0-2.0); HEMATOCRIT 21.6 % (37.0-47.0); HEMOGLOBIN 7.5 g/dl (12.0-16.0); LYMPHOCYTES # 0.5 10^3/ul (0.8-2.9); LYMPHOCYTES % 1.3 % (15.0-51.0); MEAN CORPUSCULAR HEMOGLOBIN 30.4 pg (29.0-33.0); MEAN CORPUSCULAR HGB CONC 34.7 g/dl (32.0-37.0); MEAN CORPUSCULAR VOLUME 87.4 fl (82.0-101.0); MEAN PLATELET VOLUME 13.6 fl (7.4-10.4); MONOCYTE # 0.7 10^3/ul (0.3-0.9); MONOCYTES % 1.9 % (0.0-11.0); NEUTROPHIL # 32.1 10^3/ul (1.6-7.5); NUCLEATED RED BLOOD CELLS # 0.2 10^3/ul (0.0-0.0); NUCLEATED RED BLOOD CELLS% 0.4 /100WBC (0.0-0.0); RED BLOOD COUNT 2.47 10^6/ul (4.20-5.40); RED CELL DISTRIBUTION WIDTH 16.6 % (11.5-14.5)
[2017-11-19 04:16] LABS: LACTIC ACID 1.8 mmol/L (0.5-2.0)
[2017-11-19 04:18] LABS: ANION GAP 12 (8-16); BLOOD UREA NITROGEN 47 mg/dl (7-20); CALCIUM 6.8 mg/dl (8.4-10.2); CARBON DIOXIDE 21 mmol/L (21-31); CHLORIDE 95 mmol/L (97-110); GLUCOSE 111 mg/dl (70-220); MAGNESIUM 1.2 mg/dl (1.7-2.5); PHOSPHORUS 3.2 mg/dl (2.5-4.9); POTASSIUM 4.5 mmol/L (3.5-5.1); SODIUM 123 mmol/L (135-144)
[2017-11-19 04:21] LABS: NEUTROPHILS % 95.9 % (39.0-77.0); POSITIVE DIFF @See below
[2017-11-19 04:23] LABS: WHITE BLOOD COUNT 33.5 10^3/ul (4.8-10.8)
[2017-11-19 04:26] LABS: PLATELET COUNT 27 10^3/UL (140-415)
[2017-11-19] MEDS: SOD CHLORIDE 0.9% 1,000 ML IV (05:03)
[2017-11-19] MEDS: HYDROCORTISONE 100 MG INJ IV ×3 (05:56→21:28)
[2017-11-19] MEDS: PIPER-TAZO 2.25 GM (PMX) 50 ML IVPB (05:56)
[2017-11-19] MEDS: PANTOPRAZOLE 40 MG INJ IV (05:56)
[2017-11-19] MEDS: LIOTHYRONINE 5 MCG TAB PEG (06:13)
[2017-11-19] MEDS: LEVOTHYROXINE 150 MCG TAB PEG (06:14)
[2017-11-19] MEDS: MAGNESIUM SULFATE 2 GM/50 ML 50 ML IVPB (06:38)
[2017-11-19 08:13] LABS: IMMEDIATE SPIN CROSSMATCH 1 1
[2017-11-19 08:18] LABS: AADO2 Arterial 375.8 mmHg (7.0-24.0); Allen Test ACCEPTAB; Arterial Base Excess -5.9 mmol/L (-3.0-3); Arterial Blood Gas Oxygen Sat 96.4 mmHG (95.0-100.0); Arterial COHb 0.1 % (0.0-3.0); Arterial Fraction of Oxyhgb 96.1 % (93.0-99.0); Arterial HCO3 19.1 mmol/L (22.0-26.0); Arterial MetHb 0.2 % (0.0-1.5); Arterial Total Hemglobin 8.5 g/dl (12.0-18.0); Arterial pCO2 34.9 mmhg (35-45); MODE VENT - AC; Site Left Radial
[2017-11-19] MEDS: POLYETHYLENE GLYCOL 17 GM PACKET PEG (09:00)
[2017-11-19] MEDS: VASOPRESSIN 60 UNIT in DEXTROSE 5% 57 ML IV ×2 (10:00→20:48)
[2017-11-19] MEDS: BUMETANIDE 1 MG INJ IV (10:07)
[2017-11-19] MEDS: CALCIUM/VITAMIN D (500/200) TAB PEG (10:07)
[2017-11-19] MEDS: MEROPENEM 1 GM/50ML(PMX) 50 ML IVPB ×2 (11:16→21:27)
[2017-11-19] MEDS: DEXTROSE 5%-0.9% NACL 1,000 ML IV (16:05)
[2017-11-19] MEDS: SILVER SULFADIAZINE 1% 25 GM CR TOP (17:07)
[2017-11-19 18:51] LABS: PLATELET COUNT 13 10^3/UL (140-415)
[2017-11-19 19:05] LABS: LACTATE DEHYDROGENASE 967 IU/L (313-618)
[2017-11-19 19:07] LABS: INR 1.09; PROTIME 14.2 Sec (11.9-14.9); PT RATIO 1.1
[2017-11-19 19:08] LABS: PARTIAL THROMBOPLASTIN TIME 41.4 Sec (25.0-35.0)
[2017-11-19] MEDS: SENNA TAB PEG (19:17)
[2017-11-19 19:28] LABS: THROMBIN TIME 14.2 SEC (13.8-19.1)
[2017-11-19 19:31] LABS: FIBRIN SPLIT PRODUCT >10 and <40 ug/ml (<10)
[2017-11-19 19:45] LABS: D-DIMER 3901.86 ng/ml (<460)
[2017-11-19 19:47] LABS: MAGNESIUM 1.7 mg/dl (1.7-2.5)
[2017-11-19] MEDS: SOD CHLORIDE 0.9% 250 ML IV* (20:09)
[2017-11-20] MEDS: CASPOFUNGIN 50 MG in SOD CHLORIDE 0.9% 250 ML IVPB (00:59)
[2017-11-20 05:19] LABS: WHITE BLOOD COUNT 25.8 10^3/ul (4.8-10.8)
[2017-11-20 05:19] LABS: ABNORMAL IP MESSAGE 1; HEMATOCRIT 25.3 % (37.0-47.0); HEMOGLOBIN 8.7 g/dl (12.0-16.0); MEAN CORPUSCULAR HEMOGLOBIN 29.9 pg (29.0-33.0); MEAN CORPUSCULAR HGB CONC 34.4 g/dl (32.0-37.0); MEAN CORPUSCULAR VOLUME 86.9 fl (82.0-101.0); MEAN PLATELET VOLUME 11.8 fl (7.4-10.4); NUCLEATED RED BLOOD CELLS% 0.8 /100WBC (0.0-0.0); RED BLOOD COUNT 2.91 10^6/ul (4.20-5.40); RED CELL DISTRIBUTION WIDTH 17.3 % (11.5-14.5)
[2017-11-20 05:22] LABS: PLATELET COUNT 38 10^3/UL (140-415); POSITIVE DIFF @See below
[2017-11-20 05:23] LABS: ADD MAN DIFF? YES
[2017-11-20] MEDS: METOCLOPRAMIDE 10 MG INJ IV ×3 (05:33→17:59)
[2017-11-20] MEDS: VANCOMYCIN HCL 250 MG/5ML POSYG GTB ×3 (05:33→17:58)
[2017-11-20] MEDS: HYDROCORTISONE 100 MG INJ IV ×3 (05:33→22:31)
[2017-11-20] MEDS: PANTOPRAZOLE 40 MG INJ IV (05:33)
[2017-11-20 05:59] LABS: ANION GAP 13 (8-16); BLOOD UREA NITROGEN 48 mg/dl (7-20); CALCIUM 6.9 mg/dl (8.4-10.2); CARBON DIOXIDE 19 mmol/L (21-31); CHLORIDE 97 mmol/L (97-110); GLUCOSE 129 mg/dl (70-220); MAGNESIUM 1.7 mg/dl (1.7-2.5); PHOSPHORUS 3.1 mg/dl (2.5-4.9); SODIUM 125 mmol/L (135-144)
[2017-11-20] MEDS: LEVOTHYROXINE 150 MCG TAB PEG (06:22)
[2017-11-20] MEDS: DEXTROSE 5%-0.9% NACL 1,000 ML IV ×2 (06:23→22:44)
[2017-11-20] MEDS: LIOTHYRONINE 5 MCG TAB PEG (06:23)
[2017-11-20 07:13] LABS: ANISOCYTOSIS 1+ (0-0); BAND NEUTROPHILS #M 9.2 10^3/ul (0.0-0.6); BAND NEUTROPHILS % (M) 36 % (0-4); BURR CELLS 3+ (0-0); EOSINOPHILS % (M) 1 % (0-7); ERYTHROBLAST% (NRBC) (M) 1 % (0-0); LYMPHOCYTES #M 0.2 10^3/ul (0.8-2.9); LYMPHOCYTES % (M) 1 % (15-51); PLATELET ESTIMATE SIG DECREASED; POIKILOCYTOSIS 3+ (0-0); POLYCHROMASIA 2+ (0-0); SEG NEUT #M 18.4 10^3/ul (1.6-7.5); SEGMENTED NEUTROPHILS (M) % 62 % (39-77)
[2017-11-20] MEDS: CALCIUM/VITAMIN D (500/200) TAB PEG (08:11)
[2017-11-20] MEDS: MEROPENEM 1 GM/50ML(PMX) 50 ML IVPB ×2 (08:11→20:48)
[2017-11-20] MEDS: POLYETHYLENE GLYCOL 17 GM PACKET PEG (08:11)
[2017-11-20] MEDS: BUMETANIDE 1 MG INJ IV (08:11)
[2017-11-20] MEDS: SILVER SULFADIAZINE 1% 25 GM CR TOP (08:12)
[2017-11-20] MEDS: VASOPRESSIN 60 UNIT in DEXTROSE 5% 57 ML IV ×2 (08:12→22:00)
[2017-11-20] MEDS: VANCOMYCIN 1 GM 250 ML IVPB (15:12)
[2017-11-20] MEDS: FUROSEMIDE 20 MG INJ IV (15:59)
[2017-11-20] MEDS: morphine LIQ (10 MG/5 ML) CUP GTB ×2 (17:09→17:59)
[2017-11-20] MEDS: SENNA TAB PEG (20:54)
[2017-11-21] MEDS: METOCLOPRAMIDE 10 MG INJ IV ×4 (00:25→17:28)
[2017-11-21] MEDS: CASPOFUNGIN 50 MG in SOD CHLORIDE 0.9% 250 ML IVPB (00:26)
[2017-11-21 05:59] LABS: WHITE BLOOD COUNT 19.8 10^3/ul (4.8-10.8)
[2017-11-21 05:59] LABS: ABNORMAL IP MESSAGE 1; HEMATOCRIT 29.4 % (37.0-47.0); MEAN CORPUSCULAR HEMOGLOBIN 29.8 pg (29.0-33.0); MEAN CORPUSCULAR VOLUME 87.5 fl (82.0-101.0); RED BLOOD COUNT 3.36 10^6/ul (4.20-5.40); RED CELL DISTRIBUTION WIDTH 17.8 % (11.5-14.5)
[2017-11-21] MEDS: LIOTHYRONINE 5 MCG TAB PEG (06:04)
[2017-11-21] MEDS: PANTOPRAZOLE 40 MG INJ IV (06:04)
[2017-11-21] MEDS: LEVOTHYROXINE 150 MCG TAB PEG (06:04)
[2017-11-21] MEDS: HYDROCORTISONE 100 MG INJ IV ×3 (06:04→21:41)
[2017-11-21 06:21] LABS: ANION GAP 13 (8-16); BLOOD UREA NITROGEN 52 mg/dl (7-20); CALCIUM 7.1 mg/dl (8.4-10.2); CARBON DIOXIDE 19 mmol/L (21-31); CHLORIDE 100 mmol/L (97-110); GLUCOSE 142 mg/dl (70-220); POTASSIUM 3.8 mmol/L (3.5-5.1); SODIUM 128 mmol/L (135-144)
[2017-11-21 06:24] LABS: PLATELET COUNT 13 10^3/UL (140-415); POSITIVE DIFF @See below
[2017-11-21 06:25] LABS: ADD MAN DIFF? YES
[2017-11-21 09:36] LABS: ANISOCYTOSIS 1+ (0-0); BAND NEUTROPHILS #M 2.3 10^3/ul (0.0-0.6); BAND NEUTROPHILS % (M) 12 % (0-4); BURR CELLS 2+ (0-0); ERYTHROBLAST% (NRBC) (M) 1 % (0-0); GIANT THROMBO% (M) 1 % (0-0); LYMPHOCYTES #M 0.7 10^3/ul (0.8-2.9); LYMPHOCYTES % (M) 4 % (15-51); MONOCYTE #M 0.9 10^3/ul (0.3-0.9); MONOCYTES % (M) 5 % (0-11); PLATELET ESTIMATE DECREASED; POIKILOCYTOSIS 1+ (0-0); POLYCHROMASIA 1+ (0-0); SEG NEUT #M 16.1 10^3/ul (1.6-7.5); SEGMENTED NEUTROPHILS (M) % 79 % (39-77); SMUDGE%M 2 % (0-0)
[2017-11-21] MEDS: MEROPENEM 1 GM/50ML(PMX) 50 ML IVPB ×2 (09:44→21:41)
[2017-11-21] MEDS: CALCIUM/VITAMIN D (500/200) TAB PEG (09:46)
[2017-11-21] MEDS: POLYETHYLENE GLYCOL 17 GM PACKET PEG (09:46)
[2017-11-21] MEDS: BUMETANIDE 1 MG INJ IV (09:46)
[2017-11-21] MEDS: VASOPRESSIN 60 UNIT in DEXTROSE 5% 57 ML IV ×2 (10:00→22:00)
[2017-11-21] MEDS ORDERED: MAGNESIUM SULFATE 2 GM/50 ML 50 ML (11:38)
[2017-11-21] MEDS: DEXTROSE 5%-0.9% NACL 1,000 ML IV (11:47)
[2017-11-21] MEDS: MAGNESIUM SULFATE 2 GM/50 ML 50 ML IVPB (11:56)
[2017-11-21] MEDS: SILVER SULFADIAZINE 1% 25 GM CR TOP (11:57)
[2017-11-21 13:27] LABS: PROCALCITONIN 3.04 ng/mL (<0.10)
[2017-11-21 16:07] LABS: TYPE AND SCREEN 1
[2017-11-21] MEDS: SENNA TAB PEG (21:00)
[2017-11-21 22:05] LABS: LACTIC ACID 1.7 mmol/L (0.5-2.0)
[2017-11-21 22:55] LABS: ADD UMIC YES; UR ASCORBIC ACID NEGATIVE (NEGATIVE); UR BACTERIA FEW /HPF (NONE SEEN); UR BILIRUBIN (Dip) NEGATIVE (NEGATIVE); UR BLOOD (Dip) 2+ mg/dL (NEGATIVE); UR CLARITY SLIGHTLY CLOUDY (CLEAR); UR COLOR AMBER (YELLOW); UR GLUCOSE (Dip) 1+ mg/dL (NEGATIVE); UR KETONES (Dip) NEGATIVE (NEGATIVE); UR LEUKOCYTE ESTERASE (Dip) NEGATIVE Leu/ul (NEGATIVE); UR MUCUS FEW /HPF (NONE SEEN); UR NITRITE (Dip) NEGATIVE (NEGATIVE); UR NONSQUAMOUS EPITHELIAL CELL 4 /HPF (NONE SEEN); UR RBC 33 /HPF (0-5); UR SPECIFIC GRAVITY (Dip) 1.017 (1.003-1.030); UR SQUAMOUS EPITHELIAL CELL FEW /HPF (FEW); UR TOTAL PROTEIN (Dip) 1+ mg/dl (NEGATIVE); UR UROBILINOGEN (Dip) 1+ mg/dL (NEGATIVE); UR WBC 27 /HPF (0-5)
[2017-11-21] MEDS: SOD CHLORIDE 0.9% IVPB (22:55)
[2017-11-21] MEDS: DAPTOMYCIN IVPB (22:55)
[2017-11-22] MEDS: DEXTROSE 5%-0.9% NACL 1,000 ML IV ×2 (00:31→14:57)
[2017-11-22] MEDS: METOCLOPRAMIDE 10 MG INJ IV ×4 (00:31→17:18)
[2017-11-22 05:20] LABS: ABNORMAL IP MESSAGE 1; HEMATOCRIT 27.1 % (37.0-47.0); HEMOGLOBIN 8.9 g/dl (12.0-16.0); MEAN CORPUSCULAR HEMOGLOBIN 29.2 pg (29.0-33.0); MEAN CORPUSCULAR HGB CONC 32.8 g/dl (32.0-37.0); MEAN CORPUSCULAR VOLUME 88.9 fl (82.0-101.0); NUCLEATED RED BLOOD CELLS% 1.7 /100WBC (0.0-0.0); RED BLOOD COUNT 3.05 10^6/ul (4.20-5.40)
[2017-11-22 05:25] LABS: PLATELET COUNT 27 10^3/UL (140-415); POSITIVE DIFF @See below
[2017-11-22 05:26] LABS: ADD MAN DIFF? YES
[2017-11-22 05:40] LABS: LACTIC ACID 1.8 mmol/L (0.5-2.0)
[2017-11-22 05:44] LABS: ANION GAP 12 (8-16); BLOOD UREA NITROGEN 56 mg/dl (7-20); CALCIUM 7.6 mg/dl (8.4-10.2); CARBON DIOXIDE 19 mmol/L (21-31); CHLORIDE 101 mmol/L (97-110); CREATININE 0.94 mg/dl (0.44-1.00); GLUCOSE 139 mg/dl (70-220); POTASSIUM 4.1 mmol/L (3.5-5.1); SODIUM 128 mmol/L (135-144)
[2017-11-22] MEDS: PANTOPRAZOLE 40 MG INJ IV (06:22)
[2017-11-22] MEDS: LEVOTHYROXINE 150 MCG TAB PEG (06:22)
[2017-11-22] MEDS: HYDROCORTISONE 100 MG INJ IV ×3 (06:22→21:42)
[2017-11-22] MEDS: LIOTHYRONINE 5 MCG TAB PEG (06:22)
[2017-11-22 07:47] LABS: ANISOCYTOSIS 1+ (0-0); BAND NEUTROPHILS #M 1.2 10^3/ul (0.0-0.6); BAND NEUTROPHILS % (M) 8 % (0-4); BURR CELLS 3+ (0-0); ERYTHROBLAST% (NRBC) (M) 3 % (0-0); GIANT THROMBO% (M) 2 % (0-0); LYMPHOCYTES #M 0.3 10^3/ul (0.8-2.9); LYMPHOCYTES % (M) 2 % (15-51); MONOCYTE #M 0.3 10^3/ul (0.3-0.9); MONOCYTES % (M) 2 % (0-11); MYELOCYTES #M 0.1 10^3/ul (0.0-0.0); MYELOCYTES % (M) 1 % (0-0); OVALOCYTES 1+ (0-0); PLATELET ESTIMATE SIG DECREASED; POIKILOCYTOSIS 3+ (0-0); POLYCHROMASIA 2+ (0-0); SEG NEUT #M 14.1 10^3/ul (1.6-7.5); SEGMENTED NEUTROPHILS (M) % 87 % (39-77); SMUDGE%M 6 % (0-0)
[2017-11-22] MEDS: SILVER SULFADIAZINE 1% 25 GM CR TOP (08:11)
[2017-11-22] MEDS: MEROPENEM 1 GM/50ML(PMX) 50 ML IVPB ×2 (08:11→20:40)
[2017-11-22] MEDS: CALCIUM/VITAMIN D (500/200) TAB PEG (08:11)
[2017-11-22] MEDS: BUMETANIDE 1 MG INJ IV (08:11)
[2017-11-22 08:41] LABS: AADO2 Arterial 167.1 mmHg (7.0-24.0); Allen Test ACCEPTAB; Arterial Base Excess -7.8 mmol/L (-3.0-3); Arterial COHb 1.2 % (0.0-3.0); Arterial Fraction of Oxyhgb 93.5 % (93.0-99.0); Arterial HCO3 18.3 mmol/L (22.0-26.0); Arterial MetHb 0.4 % (0.0-1.5); Arterial Total Hemglobin 9.6 g/dl (12.0-18.0); Arterial pCO2 39.1 mmhg (35-45); MODE VENT - AC; Site Right Radial
[2017-11-22] MEDS: POLYETHYLENE GLYCOL 17 GM PACKET PEG (09:00)
[2017-11-22] MEDS: VALACYCLOVIR 500 MG TAB GTB ×2 (09:47→22:56)
[2017-11-22] MEDS: VASOPRESSIN 60 UNIT in DEXTROSE 5% 57 ML IV ×2 (10:00→21:43)
[2017-11-22 14:50] LABS: AADO2 Arterial 327.6 mmHg (7.0-24.0); Allen Test ACCEPTAB; Arterial Blood Gas Oxygen Sat 95.9 mmHG (95.0-100.0); Arterial COHb 0.7 % (0.0-3.0); Arterial HCO3 17.4 mmol/L (22.0-26.0); Arterial MetHb 0.2 % (0.0-1.5); Arterial Total Hemglobin 8.8 g/dl (12.0-18.0); MODE VENT - AC; Site Right Radial
[2017-11-22] MEDS: SENNA TAB PEG (20:40)
[2017-11-22] MEDS: DAPTOMYCIN IVPB (21:42)
[2017-11-22] MEDS: SOD CHLORIDE 0.9% IVPB (21:42)
[2017-11-23] MEDS: METOCLOPRAMIDE 10 MG INJ IV ×4 (00:02→17:51)
[2017-11-23 00:52] LABS: HEPARIN INDUCED PLATELET AB NEGATIVE (NEGATIVE)
[2017-11-23] MEDS: DEXTROSE 5%-0.9% NACL 1,000 ML IV (01:22)
[2017-11-23] MEDS: PANTOPRAZOLE 40 MG INJ IV (05:43)
[2017-11-23] MEDS: HYDROCORTISONE 100 MG INJ IV ×3 (05:43→22:02)
[2017-11-23 06:02] LABS: CREATINE KINASE 51 IU/L (23-200)
[2017-11-23 06:12] LABS: ABNORMAL IP MESSAGE 1; HEMATOCRIT 24.7 % (37.0-47.0); HEMOGLOBIN 8.4 g/dl (12.0-16.0); MEAN CORPUSCULAR HEMOGLOBIN 29.9 pg (29.0-33.0); MEAN CORPUSCULAR VOLUME 87.9 fl (82.0-101.0); NUCLEATED RED BLOOD CELLS% 0.8 /100WBC (0.0-0.0); RED BLOOD COUNT 2.81 10^6/ul (4.20-5.40); RED CELL DISTRIBUTION WIDTH 18.1 % (11.5-14.5)
[2017-11-23 06:22] LABS: ANION GAP 15 (8-16); BLOOD UREA NITROGEN 62 mg/dl (7-20); CALCIUM 7.7 mg/dl (8.4-10.2); CARBON DIOXIDE 20 mmol/L (21-31); CHLORIDE 99 mmol/L (97-110); CREATININE 0.91 mg/dl (0.44-1.00); GLUCOSE 161 mg/dl (70-220); POTASSIUM 3.8 mmol/L (3.5-5.1); SODIUM 130 mmol/L (135-144)
[2017-11-23 06:57] LABS: PLATELET COUNT 13 10^3/UL (140-415)
[2017-11-23 06:58] LABS: ADD MAN DIFF? YES; POSITIVE DIFF @See below
[2017-11-23] MEDS: VALACYCLOVIR 500 MG TAB GTB ×2 (08:07→21:04)
[2017-11-23] MEDS: LEVOTHYROXINE 150 MCG TAB PEG (08:07)
[2017-11-23] MEDS: LIOTHYRONINE 5 MCG TAB PEG (08:07)
[2017-11-23] MEDS: MEROPENEM 1 GM/50ML(PMX) 50 ML IVPB ×2 (08:08→21:04)
[2017-11-23] MEDS: BUMETANIDE 1 MG INJ IV ×2 (08:08→17:51)
[2017-11-23] MEDS: CALCIUM/VITAMIN D (500/200) TAB PEG (08:08)
[2017-11-23 08:42] LABS: AADO2 Arterial 289.5 mmHg (7.0-24.0); Allen Test ACCEPTAB; Arterial Base Excess -6.6 mmol/L (-3.0-3); Arterial COHb 0.6 % (0.0-3.0); Arterial Fraction of Oxyhgb 94.2 % (93.0-99.0); Arterial HCO3 17.1 mmol/L (22.0-26.0); Arterial MetHb 0.2 % (0.0-1.5); Arterial pCO2 27.9 mmhg (35-45); MODE VENT - AC; Site Right Radial
[2017-11-23 09:28] LABS: ANISOCYTOSIS 1+ (0-0); BAND NEUTROPHILS #M 1.5 10^3/ul (0.0-0.6); BAND NEUTROPHILS % (M) 8 % (0-4); LYMPHOCYTES #M 0.3 10^3/ul (0.8-2.9); LYMPHOCYTES % (M) 2 % (15-51); MONOCYTE #M 0.5 10^3/ul (0.3-0.9); MONOCYTES % (M) 3 % (0-11); PLATELET ESTIMATE SIG DECREASED; POIKILOCYTOSIS 3+ (0-0); POLYCHROMASIA 3+ (0-0); PROMYELOCYTES #M 0.1 10^3/ul (0-0); PROMYELOCYTES % (M) 1 % (0-0); SEG NEUT #M 16.6 10^3/ul (1.6-7.5); SEGMENTED NEUTROPHILS (M) % 86 % (39-77); SMUDGE%M 2 % (0-0)
[2017-11-23] MEDS: VASOPRESSIN 60 UNIT in DEXTROSE 5% 57 ML IV ×2 (10:00→22:00)
[2017-11-23] MEDS: SILVER SULFADIAZINE 1% 25 GM CR TOP (11:40)
[2017-11-23] MEDS: traMADol 50 MG TAB PEG (13:52)
[2017-11-23] MEDS: SENNA TAB PEG (20:52)
[2017-11-23] MEDS: DAPTOMYCIN IVPB (22:02)
[2017-11-23] MEDS: SOD CHLORIDE 0.9% IVPB (22:02)
[2017-11-24] MEDS: METOCLOPRAMIDE 10 MG INJ IV ×4 (00:47→18:13)
[2017-11-24 05:15] LABS: WHITE BLOOD COUNT 23.3 10^3/ul (4.8-10.8)
[2017-11-24 05:15] LABS: ABNORMAL IP MESSAGE 1; HEMATOCRIT 26.5 % (37.0-47.0); HEMOGLOBIN 8.8 g/dl (12.0-16.0); MEAN CORPUSCULAR HGB CONC 33.2 g/dl (32.0-37.0); MEAN CORPUSCULAR VOLUME 87.5 fl (82.0-101.0); NUCLEATED RED BLOOD CELLS% 0.4 /100WBC (0.0-0.0); RED BLOOD COUNT 3.03 10^6/ul (4.20-5.40); RED CELL DISTRIBUTION WIDTH 18.6 % (11.5-14.5)
[2017-11-24 05:28] LABS: PLATELET COUNT 13 10^3/UL (140-415)
[2017-11-24 05:29] LABS: ADD MAN DIFF? YES; POSITIVE DIFF @See below
[2017-11-24 05:40] LABS: ANION GAP 11 (8-16); BLOOD UREA NITROGEN 68 mg/dl (7-20); CARBON DIOXIDE 20 mmol/L (21-31); CHLORIDE 103 mmol/L (97-110); CREATININE 0.97 mg/dl (0.44-1.00); GLUCOSE 148 mg/dl (70-220); POTASSIUM 3.9 mmol/L (3.5-5.1); SODIUM 130 mmol/L (135-144)
[2017-11-24] MEDS: LIOTHYRONINE 5 MCG TAB PEG (06:00)
[2017-11-24] MEDS: PANTOPRAZOLE 40 MG INJ IV (06:01)
[2017-11-24] MEDS: LEVOTHYROXINE 150 MCG TAB PEG (06:01)
[2017-11-24] MEDS: traMADol 50 MG TAB PEG (06:01)
[2017-11-24] MEDS: HYDROCORTISONE 100 MG INJ IV ×3 (06:01→21:17)
[2017-11-24 07:48] LABS: AADO2 Arterial 225.2 mmHg (7.0-24.0); Allen Test ACCEPTAB; Arterial Base Excess -6.3 mmol/L (-3.0-3); Arterial Blood Gas Oxygen Sat 90.8 mmHG (95.0-100.0); Arterial COHb 0.8 % (0.0-3.0); Arterial Fraction of Oxyhgb 89.8 % (93.0-99.0); Arterial HCO3 18.3 mmol/L (22.0-26.0); Arterial MetHb 0.3 % (0.0-1.5); Arterial Total Hemglobin 9.6 g/dl (12.0-18.0); Arterial pCO2 32.7 mmhg (35-45); MODE VENT - AC; Site Right Radial
[2017-11-24 09:25] LABS: ANISOCYTOSIS 1+ (0-0); BAND NEUTROPHILS #M 3.4 10^3/ul (0.0-0.6); BAND NEUTROPHILS % (M) 15 % (0-4); EOSINOPHILS % (M) 1 % (0-7); GIANT THROMBO% (M) 2 % (0-0); LYMPHOCYTES #M 0.6 10^3/ul (0.8-2.9); LYMPHOCYTES % (M) 3 % (15-51); MONOCYTE #M 0.2 10^3/ul (0.3-0.9); MONOCYTES % (M) 1 % (0-11); MYELOCYTES #M 0.4 10^3/ul (0.0-0.0); MYELOCYTES % (M) 2 % (0-0); PLATELET ESTIMATE SIG DECREASED; POIKILOCYTOSIS 3+ (0-0); POLYCHROMASIA 2+ (0-0); SEGMENTED NEUTROPHILS (M) % 78 % (39-77); SMUDGE%M 1 % (0-0)
[2017-11-24] MEDS: MEROPENEM 1 GM/50ML(PMX) 50 ML IVPB ×2 (09:26→21:16)
[2017-11-24] MEDS: BUMETANIDE 1 MG INJ IV (09:26)
[2017-11-24] MEDS: VALACYCLOVIR 500 MG TAB GTB ×2 (09:27→21:15)
[2017-11-24] MEDS: SILVER SULFADIAZINE 1% 25 GM CR TOP (09:27)
[2017-11-24] MEDS: CALCIUM/VITAMIN D (500/200) TAB PEG (09:27)
[2017-11-24] MEDS: VASOPRESSIN 60 UNIT in DEXTROSE 5% 57 ML IV ×2 (10:00→21:17)
[2017-11-24] MEDS: SOD CHLORIDE 0.9% 250 ML IV* (10:43)
[2017-11-24 18:48] LABS: TYPE AND SCREEN 1 1
[2017-11-24] MEDS: SENNA TAB PEG (21:15)
[2017-11-24] MEDS: DAPTOMYCIN IVPB (21:16)
[2017-11-24] MEDS: SOD CHLORIDE 0.9% IVPB (21:16)
[2017-11-25] MEDS: METOCLOPRAMIDE 10 MG INJ IV ×4 (00:23→17:19)
[2017-11-25 05:42] LABS: ADD MAN DIFF? NO
[2017-11-25 05:53] LABS: ABNORMAL IP MESSAGE 1; BASOPHIL # 0.1 10^3/ul (0.0-0.1); BASOPHILS % 0.3 % (0.0-2.0); HEMATOCRIT 24.6 % (37.0-47.0); HEMOGLOBIN 8.3 g/dl (12.0-16.0); LYMPHOCYTES # 0.4 10^3/ul (0.8-2.9); LYMPHOCYTES % 1.4 % (15.0-51.0); MEAN CORPUSCULAR HEMOGLOBIN 29.5 pg (29.0-33.0); MEAN CORPUSCULAR HGB CONC 33.7 g/dl (32.0-37.0); MEAN CORPUSCULAR VOLUME 87.5 fl (82.0-101.0); MEAN PLATELET VOLUME 11.3 fl (7.4-10.4); MONOCYTE # 0.6 10^3/ul (0.3-0.9); NEUTROPHIL # 28.8 10^3/ul (1.6-7.5); NEUTROPHILS % 94.1 % (39.0-77.0); NUCLEATED RED BLOOD CELLS # 0.1 10^3/ul (0.0-0.0); NUCLEATED RED BLOOD CELLS% 0.3 /100WBC (0.0-0.0); PLATELET COUNT 79 10^3/UL (140-415); RED BLOOD COUNT 2.81 10^6/ul (4.20-5.40); RED CELL DISTRIBUTION WIDTH 18.8 % (11.5-14.5)
[2017-11-25 05:53] LABS: WHITE BLOOD COUNT 30.6 10^3/ul (4.8-10.8)
[2017-11-25 05:55] LABS: POSITIVE DIFF @See below
[2017-11-25 06:13] LABS: ANION GAP 13 (8-16); BLOOD UREA NITROGEN 77 mg/dl (7-20); CALCIUM 8.3 mg/dl (8.4-10.2); CARBON DIOXIDE 19 mmol/L (21-31); CHLORIDE 102 mmol/L (97-110); CREATININE 1.02 mg/dl (0.44-1.00); GLUCOSE 131 mg/dl (70-220); POTASSIUM 4.2 mmol/L (3.5-5.1); SODIUM 130 mmol/L (135-144)
[2017-11-25] MEDS: HYDROCORTISONE 100 MG INJ IV ×3 (06:36→22:44)
[2017-11-25] MEDS: PANTOPRAZOLE 40 MG INJ IV (06:36)
[2017-11-25] MEDS: LIOTHYRONINE 5 MCG TAB PEG (08:24)
[2017-11-25] MEDS: LEVOTHYROXINE 150 MCG TAB PEG (08:24)
[2017-11-25] MEDS: BUMETANIDE 1 MG INJ IV (08:29)
[2017-11-25] MEDS: CALCIUM/VITAMIN D (500/200) TAB PEG (08:29)
[2017-11-25] MEDS: MEROPENEM 1 GM/50ML(PMX) 50 ML IVPB ×2 (08:29→21:00)
[2017-11-25] MEDS: VALACYCLOVIR 500 MG TAB GTB ×2 (08:29→21:00)
[2017-11-25] MEDS: SILVER SULFADIAZINE 1% 25 GM CR TOP (08:30)
[2017-11-25] MEDS: VASOPRESSIN 60 UNIT in DEXTROSE 5% 57 ML IV ×2 (09:56→21:01)
[2017-11-25 16:57] LABS: PROTIME 14.4 Sec (11.9-14.9); PT RATIO 1.1
[2017-11-25 16:58] LABS: PARTIAL THROMBOPLASTIN TIME 27.3 Sec (25.0-35.0)
[2017-11-25] MEDS: SOD CHLORIDE 0.9% IVPB (21:00)
[2017-11-25] MEDS: SENNA TAB PEG (21:00)
[2017-11-25] MEDS: DAPTOMYCIN IVPB (21:00)
[2017-11-26] MEDS: METOCLOPRAMIDE 10 MG INJ IV ×4 (02:04→17:31)
[2017-11-26 05:21] LABS: ADD MAN DIFF? NO
[2017-11-26 05:32] LABS: WHITE BLOOD COUNT 31.3 10^3/ul (4.8-10.8)
[2017-11-26 05:32] LABS: ABNORMAL IP MESSAGE 1; BASOPHIL # 0.1 10^3/ul (0.0-0.1); BASOPHILS % 0.3 % (0.0-2.0); HEMOGLOBIN 8.6 g/dl (12.0-16.0); LYMPHOCYTES # 0.4 10^3/ul (0.8-2.9); LYMPHOCYTES % 1.3 % (15.0-51.0); MEAN CORPUSCULAR HGB CONC 34.4 g/dl (32.0-37.0); MEAN CORPUSCULAR VOLUME 87.1 fl (82.0-101.0); MONOCYTE # 0.4 10^3/ul (0.3-0.9); MONOCYTES % 1.4 % (0.0-11.0); NEUTROPHIL # 29.8 10^3/ul (1.6-7.5); NEUTROPHILS % 95.2 % (39.0-77.0); NUCLEATED RED BLOOD CELLS # 0.2 10^3/ul (0.0-0.0); NUCLEATED RED BLOOD CELLS% 0.5 /100WBC (0.0-0.0); PLATELET COUNT 41 10^3/UL (140-415); RED BLOOD COUNT 2.87 10^6/ul (4.20-5.40); RED CELL DISTRIBUTION WIDTH 19.1 % (11.5-14.5)
[2017-11-26 05:41] LABS: POSITIVE DIFF @See below
[2017-11-26 06:09] LABS: ANION GAP 16 (8-16); BLOOD UREA NITROGEN 85 mg/dl (7-20); CALCIUM 8.4 mg/dl (8.4-10.2); CARBON DIOXIDE 18 mmol/L (21-31); CHLORIDE 102 mmol/L (97-110); CREATININE 1.05 mg/dl (0.44-1.00); GLUCOSE 138 mg/dl (70-220); POTASSIUM 4.5 mmol/L (3.5-5.1); SODIUM 131 mmol/L (135-144)
[2017-11-26] MEDS: HYDROCORTISONE 100 MG INJ IV ×3 (06:35→20:53)
[2017-11-26] MEDS: PANTOPRAZOLE 40 MG INJ IV (06:35)
[2017-11-26] MEDS: morphine LIQ (10 MG/5 ML) CUP GTB ×2 (07:05→11:39)
[2017-11-26] MEDS: LEVOTHYROXINE 150 MCG TAB PEG (08:26)
[2017-11-26] MEDS: CALCIUM/VITAMIN D (500/200) TAB PEG (08:26)
[2017-11-26] MEDS: VALACYCLOVIR 500 MG TAB GTB ×2 (08:26→20:52)
[2017-11-26] MEDS: BUMETANIDE 1 MG INJ IV (08:26)
[2017-11-26] MEDS: LIOTHYRONINE 5 MCG TAB PEG (08:26)
[2017-11-26] MEDS: SILVER SULFADIAZINE 1% 25 GM CR TOP (08:26)
[2017-11-26] MEDS: MEROPENEM 1 GM/50ML(PMX) 50 ML IVPB (08:29)
[2017-11-26] MEDS: VASOPRESSIN 60 UNIT in DEXTROSE 5% 57 ML IV ×2 (10:00→22:00)
[2017-11-26] MEDS: traMADol 50 MG TAB PEG (11:39)
[2017-11-26] MEDS: CEFTRIAXONE 1 GM/50 ML (PMX) 50 ML IVPB (11:39)
[2017-11-26] MEDS ORDERED: PIPER-TAZO 3.375 GM IV (PMX) 100 ML IVPB (14:00)
[2017-11-26] MEDS: SENNA TAB PEG (20:52)
[2017-11-26] MEDS: SOD CHLORIDE 0.9% IVPB (20:53)
[2017-11-26] MEDS: DAPTOMYCIN IVPB (20:53)
[2017-11-27 05:41] LABS: ADD MAN DIFF? NO
[2017-11-27] MEDS: METOCLOPRAMIDE 10 MG INJ IV ×4 (05:46→18:18)
[2017-11-27] MEDS: HYDROCORTISONE 100 MG INJ IV ×3 (05:46→23:03)
[2017-11-27] MEDS: PANTOPRAZOLE 40 MG INJ IV (05:46)
[2017-11-27 05:51] LABS: WHITE BLOOD COUNT 25.1 10^3/ul (4.8-10.8)
[2017-11-27 05:51] LABS: ABNORMAL IP MESSAGE 1; BASOPHIL # 0.1 10^3/ul (0.0-0.1); BASOPHILS % 0.2 % (0.0-2.0); EOSINOPHILS % 0.2 % (0.0-7.0); HEMATOCRIT 23.7 % (37.0-47.0); HEMOGLOBIN 8.1 g/dl (12.0-16.0); LYMPHOCYTES # 0.5 10^3/ul (0.8-2.9); LYMPHOCYTES % 1.9 % (15.0-51.0); MEAN CORPUSCULAR HEMOGLOBIN 29.7 pg (29.0-33.0); MEAN CORPUSCULAR HGB CONC 34.2 g/dl (32.0-37.0); MEAN CORPUSCULAR VOLUME 86.8 fl (82.0-101.0); MONOCYTE # 0.4 10^3/ul (0.3-0.9); MONOCYTES % 1.6 % (0.0-11.0); NEUTROPHIL # 23.8 10^3/ul (1.6-7.5); NEUTROPHILS % 94.7 % (39.0-77.0); NUCLEATED RED BLOOD CELLS # 0.3 10^3/ul (0.0-0.0); NUCLEATED RED BLOOD CELLS% 1.1 /100WBC (0.0-0.0); RED BLOOD COUNT 2.73 10^6/ul (4.20-5.40); RED CELL DISTRIBUTION WIDTH 19.3 % (11.5-14.5)
[2017-11-27 06:17] LABS: PLATELET COUNT 27 10^3/UL (140-415)
[2017-11-27 06:18] LABS: POSITIVE DIFF @See below
[2017-11-27 06:20] LABS: ALANINE AMINOTRANSFERASE 21 IU/L (13-69); ALBUMIN 1.9 g/dl (3.3-4.9); ALBUMIN/GLOBULIN RATIO 0.73; ALKALINE PHOSPHATASE 168 IU/L (42-121); ANION GAP 16 (8-16); ASPARTATE AMINO TRANSFERASE 23 IU/L (15-46); BILIRUBIN,INDIRECT 0.4 mg/dl (0-1.1); BILIRUBIN,TOTAL 0.4 mg/dl (0.2-1.3); BLOOD UREA NITROGEN 91 mg/dl (7-20); CALCIUM 8.3 mg/dl (8.4-10.2); CARBON DIOXIDE 20 mmol/L (21-31); CHLORIDE 98 mmol/L (97-110); CREATININE 1.03 mg/dl (0.44-1.00); GLUCOSE 136 mg/dl (70-220); POTASSIUM 4.6 mmol/L (3.5-5.1); SODIUM 129 mmol/L (135-144); TOTAL PROTEIN 4.5 g/dl (6.1-8.1)
[2017-11-27 06:34] LABS: MAGNESIUM 2.1 mg/dl (1.7-2.5)
[2017-11-27 06:34] LABS: PHOSPHORUS 4.5 mg/dl (2.5-4.9)
[2017-11-27] MEDS: LEVOTHYROXINE 150 MCG TAB PEG (07:45)
[2017-11-27] MEDS: LIOTHYRONINE 5 MCG TAB PEG (07:45)
[2017-11-27] MEDS: BUMETANIDE 1 MG INJ IV (08:02)
[2017-11-27] MEDS: VALACYCLOVIR 500 MG TAB GTB ×2 (08:02→21:12)
[2017-11-27] MEDS: CALCIUM/VITAMIN D (500/200) TAB PEG (08:02)
[2017-11-27] MEDS: SILVER SULFADIAZINE 1% 25 GM CR TOP (08:15)
[2017-11-27] MEDS: VASOPRESSIN 60 UNIT in DEXTROSE 5% 57 ML IV ×2 (10:00→22:00)
[2017-11-27] MEDS: CEFTRIAXONE 1 GM/50 ML (PMX) 50 ML IVPB (10:41)
[2017-11-27] MEDS ORDERED: ALBUMIN HUMAN 25% 50 ML (11:47)
[2017-11-27] MEDS: ALBUMIN HUMAN 25% 50 ML IV (11:49)
[2017-11-27] MEDS: SOD CHLORIDE 0.9% IVPB (21:12)
[2017-11-27] MEDS: SENNA TAB PEG (21:12)
[2017-11-27] MEDS: DAPTOMYCIN IVPB (21:12)
[2017-11-27] MEDS: morphine LIQ (10 MG/5 ML) CUP GTB (21:13)
[2017-11-28] MEDS: METOCLOPRAMIDE 10 MG INJ IV ×4 (00:08→17:33)
[2017-11-28] MEDS: traMADol 50 MG TAB PEG (03:15)
[2017-11-28 05:07] LABS: ADD MAN DIFF? NO
[2017-11-28 05:12] LABS: ABNORMAL IP MESSAGE 1; BASOPHILS % 0.1 % (0.0-2.0); EOSINOPHILS % 0.1 % (0.0-7.0); HEMATOCRIT 20.5 % (37.0-47.0); LYMPHOCYTES # 0.2 10^3/ul (0.8-2.9); LYMPHOCYTES % 1.4 % (15.0-51.0); MEAN CORPUSCULAR HEMOGLOBIN 30.3 pg (29.0-33.0); MEAN CORPUSCULAR HGB CONC 33.7 g/dl (32.0-37.0); MEAN CORPUSCULAR VOLUME 89.9 fl (82.0-101.0); MONOCYTE # 0.2 10^3/ul (0.3-0.9); MONOCYTES % 1.3 % (0.0-11.0); NEUTROPHIL # 15.9 10^3/ul (1.6-7.5); NEUTROPHILS % 95.4 % (39.0-77.0); NUCLEATED RED BLOOD CELLS # 0.4 10^3/ul (0.0-0.0); NUCLEATED RED BLOOD CELLS% 2.2 /100WBC (0.0-0.0); RED BLOOD COUNT 2.28 10^6/ul (4.20-5.40); RED CELL DISTRIBUTION WIDTH 19.2 % (11.5-14.5)
[2017-11-28 05:12] LABS: WHITE BLOOD COUNT 16.7 10^3/ul (4.8-10.8)
[2017-11-28 05:26] LABS: HEMOGLOBIN 6.9 g/dl (12.0-16.0)
[2017-11-28 05:27] LABS: PLATELET COUNT 22 10^3/UL (140-415); POSITIVE DIFF @See below
[2017-11-28 05:37] LABS: ANION GAP 15 (8-16); BLOOD UREA NITROGEN 96 mg/dl (7-20); CALCIUM 8.3 mg/dl (8.4-10.2); CARBON DIOXIDE 20 mmol/L (21-31); CHLORIDE 99 mmol/L (97-110); CREATININE 1.07 mg/dl (0.44-1.00); GLUCOSE 130 mg/dl (70-220); POTASSIUM 4.6 mmol/L (3.5-5.1); SODIUM 129 mmol/L (135-144)
[2017-11-28] MEDS: PANTOPRAZOLE 40 MG INJ IV (06:12)
[2017-11-28] MEDS: HYDROCORTISONE 100 MG INJ IV ×2 (06:13→14:11)
[2017-11-28] MEDS: LEVOTHYROXINE 150 MCG TAB PEG (06:13)
[2017-11-28] MEDS: LIOTHYRONINE 5 MCG TAB PEG (06:13)
[2017-11-28 07:19] LABS: ANISOCYTOSIS 2+ (0-0); BAND NEUTROPHILS #M 0.1 10^3/ul (0.0-0.6); BAND NEUTROPHILS % (M) 1 % (0-4); BURR CELLS 3+ (0-0); ERYTHROBLAST% (NRBC) (M) 2 % (0-0); GIANT THROMBO% (M) 2 % (0-0); LYMPHOCYTES #M 0.3 10^3/ul (0.8-2.9); LYMPHOCYTES % (M) 2 % (15-51); PLATELET ESTIMATE SIG DECREASED; POIKILOCYTOSIS 3+ (0-0); POLYCHROMASIA 3+ (0-0); SEG NEUT #M 16.2 10^3/ul (1.6-7.5); SEGMENTED NEUTROPHILS (M) % 97 % (39-77); SMUDGE%M 7 % (0-0)
[2017-11-28 07:35] LABS: AADO2 Arterial 328.2 mmHg (7.0-24.0); Allen Test ACCEPTAB; Arterial Base Excess -8.6 mmol/L (-3.0-3); Arterial COHb 1.4 % (0.0-3.0); Arterial Fraction of Oxyhgb 89.4 % (93.0-99.0); Arterial HCO3 16.5 mmol/L (22.0-26.0); Arterial MetHb 0.4 % (0.0-1.5); Arterial Total Hemglobin 10.1 g/dl (12.0-18.0); Arterial pCO2 32.6 mmhg (35-45); MODE VENT - AC; Site Right Radial
[2017-11-28] MEDS: CALCIUM/VITAMIN D (500/200) TAB PEG (08:38)
[2017-11-28] MEDS: VALACYCLOVIR 500 MG TAB GTB (08:38)
[2017-11-28] MEDS: SILVER SULFADIAZINE 1% 25 GM CR TOP (08:40)
[2017-11-28 08:45] LABS: IMMEDIATE SPIN CROSSMATCH 1 2
[2017-11-28] MEDS: VASOPRESSIN 60 UNIT in DEXTROSE 5% 57 ML IV (09:15)
[2017-11-28] MEDS: CEFTRIAXONE 1 GM/50 ML (PMX) 50 ML IVPB (10:04)
[2017-11-28] MEDS: FUROSEMIDE 20 MG INJ IV (13:01)
[2017-11-28] MEDS ORDERED: HEPARIN 1000 UNITS/ML 10 ML INJ (14:51)
[2017-11-28 21:38] LABS: HEPATITIS B SURFACE ANTIGEN NEGATIVE (NEGATIVE)
[2017-11-29] MEDS: SENNA TAB PEG (00:37)
[2017-11-29] MEDS: HEPARIN 1000 UNITS/ML 10 ML INJ CATHETER ×2 (00:56→20:48)
[2017-11-29] MEDS: VASOPRESSIN 60 UNIT in DEXTROSE 5% 57 ML IV ×3 (01:36→19:28)
[2017-11-29] MEDS: METOCLOPRAMIDE 10 MG INJ IV ×3 (01:45→11:28)
[2017-11-29] MEDS: HYDROCORTISONE 100 MG INJ IV ×4 (01:45→21:17)
[2017-11-29] MEDS: SOD CHLORIDE 0.9% IVPB ×2 (01:45→21:17)
[2017-11-29] MEDS: DAPTOMYCIN IVPB ×2 (01:45→21:17)
[2017-11-29] MEDS: VALACYCLOVIR 500 MG TAB GTB ×3 (01:45→21:17)
[2017-11-29] MEDS: PANTOPRAZOLE 40 MG INJ IV (05:59)
[2017-11-29] MEDS: LIOTHYRONINE 5 MCG TAB PEG (06:04)
[2017-11-29] MEDS: LEVOTHYROXINE 150 MCG TAB PEG (06:04)
[2017-11-29 06:36] LABS: ABNORMAL IP MESSAGE 1; HEMATOCRIT 29.5 % (37.0-47.0); MEAN CORPUSCULAR HEMOGLOBIN 30.5 pg (29.0-33.0); MEAN CORPUSCULAR HGB CONC 33.9 g/dl (32.0-37.0); MEAN CORPUSCULAR VOLUME 89.9 fl (82.0-101.0); MEAN PLATELET VOLUME 11.6 fl (7.4-10.4); NUCLEATED RED BLOOD CELLS% 3.2 /100WBC (0.0-0.0); PLATELET COUNT 76 10^3/UL (140-415); RED BLOOD COUNT 3.28 10^6/ul (4.20-5.40); RED CELL DISTRIBUTION WIDTH 17.2 % (11.5-14.5)
[2017-11-29 06:50] LABS: ADD MAN DIFF? YES; POSITIVE DIFF @See below
[2017-11-29 07:20] LABS: ANION GAP 16 (8-16); BLOOD UREA NITROGEN 70 mg/dl (7-20); CALCIUM 8.4 mg/dl (8.4-10.2); CARBON DIOXIDE 23 mmol/L (21-31); CHLORIDE 99 mmol/L (97-110); CREATININE 0.72 mg/dl (0.44-1.00); GLUCOSE 124 mg/dl (70-220); POTASSIUM 4.5 mmol/L (3.5-5.1); SODIUM 133 mmol/L (135-144)
[2017-11-29] MEDS ORDERED: LIDOCAINE 1%/EPI 30 ML INJ (07:38)
[2017-11-29] MEDS: CALCIUM/VITAMIN D (500/200) TAB PEG (08:25)
[2017-11-29] MEDS: SILVER SULFADIAZINE 1% 25 GM CR TOP (08:27)
[2017-11-29 09:20] LABS: ANISOCYTOSIS 1+ (0-0); BURR CELLS 1+ (0-0); EOSINOPHILS % (M) 1 % (0-7); ERYTHROBLAST% (NRBC) (M) 7 % (0-0); PLATELET ESTIMATE DECREASED; POIKILOCYTOSIS 1+ (0-0); POLYCHROMASIA 1+ (0-0); SEGMENTED NEUTROPHILS (M) % 99 % (39-77); SMUDGE%M 6 % (0-0)
[2017-11-29] MEDS: CEFTRIAXONE 1 GM/50 ML (PMX) 50 ML IVPB (11:27)
[2017-11-29] MEDS: ALBUMIN HUMAN 25% 100 ML IV (17:26)
[2017-11-29] MEDS: EPOETIN 3000 UNITS/1 ML INJ (ESRD) SC (18:22)
[2017-11-29] MEDS ORDERED: SENNA TAB PEG (19:30)
[2017-11-29] MEDS ORDERED: NORepinephrine 8MG/250 ML (PMX 250 ML (22:23)
[2017-11-29] MEDS: morphine LIQ (10 MG/5 ML) CUP GTB (23:19)
[2017-11-29] MEDS: NORepinephrine 8MG/250 ML (PMX 250 ML IV (23:28)
[2017-11-29] MEDS: METOPROLOL 5 MG INJ IV (23:54)
[2017-11-30 05:35] LABS: ADD MAN DIFF? NO
[2017-11-30] MEDS: PANTOPRAZOLE 40 MG INJ IV (05:39)
[2017-11-30] MEDS: HYDROCORTISONE 100 MG INJ IV ×2 (05:39→14:16)
[2017-11-30 05:46] LABS: WHITE BLOOD COUNT 9.8 10^3/ul (4.8-10.8)
[2017-11-30 05:46] LABS: ABNORMAL IP MESSAGE 1; BASOPHILS % 0.1 % (0.0-2.0); EOSINOPHILS % 0.2 % (0.0-7.0); HEMATOCRIT 26.7 % (37.0-47.0); HEMOGLOBIN 9.1 g/dl (12.0-16.0); LYMPHOCYTES # 0.2 10^3/ul (0.8-2.9); LYMPHOCYTES % 1.5 % (15.0-51.0); MEAN CORPUSCULAR HEMOGLOBIN 30.8 pg (29.0-33.0); MEAN CORPUSCULAR HGB CONC 34.1 g/dl (32.0-37.0); MEAN CORPUSCULAR VOLUME 90.5 fl (82.0-101.0); MONOCYTE # 0.3 10^3/ul (0.3-0.9); MONOCYTES % 2.7 % (0.0-11.0); NEUTROPHIL # 9.2 10^3/ul (1.6-7.5); NEUTROPHILS % 94.5 % (39.0-77.0); NUCLEATED RED BLOOD CELLS% 10.1 /100WBC (0.0-0.0); PLATELET COUNT 38 10^3/UL (140-415); RED BLOOD COUNT 2.95 10^6/ul (4.20-5.40); RED CELL DISTRIBUTION WIDTH 17.8 % (11.5-14.5)
[2017-11-30 05:50] LABS: POSITIVE DIFF @See below
[2017-11-30 06:01] LABS: ANION GAP 12 (8-16); BLOOD UREA NITROGEN 43 mg/dl (7-20); CALCIUM 8.4 mg/dl (8.4-10.2); CARBON DIOXIDE 25 mmol/L (21-31); CHLORIDE 104 mmol/L (97-110); CREATININE 0.61 mg/dl (0.44-1.00); GLUCOSE 124 mg/dl (70-220); POTASSIUM 4.5 mmol/L (3.5-5.1); SODIUM 136 mmol/L (135-144)
[2017-11-30 06:02] LABS: CREATINE KINASE 62 IU/L (23-200)
[2017-11-30 06:04] LABS: INR 1.36; PT RATIO 1.3
[2017-11-30] MEDS ORDERED: EPINEPHrine 0.1 MG/ML SYG (07:00)
[2017-11-30] MEDS ORDERED: DEXTROSE 50% 50 ML SYRINGE (07:00)
[2017-11-30] MEDS: LIOTHYRONINE 5 MCG TAB PEG (07:00)
[2017-11-30] MEDS: LEVOTHYROXINE 150 MCG TAB PEG (07:00)
[2017-11-30 07:58] LABS: TYPE AND SCREEN 1
[2017-11-30] MEDS: SILVER SULFADIAZINE 1% 25 GM CR TOP (08:34)
[2017-11-30] MEDS: CALCIUM/VITAMIN D (500/200) TAB PEG (08:34)
[2017-11-30] MEDS: VALACYCLOVIR 500 MG TAB GTB (08:34)
[2017-11-30] MEDS: VASOPRESSIN 60 UNIT in DEXTROSE 5% 57 ML IV ×2 (09:18→14:22)
[2017-11-30] MEDS: CEFTRIAXONE 1 GM/50 ML (PMX) 50 ML IVPB (11:43)
[2017-11-30] MEDS: LIDOCAINE 1%/EPI 30 ML INJ (12:36)
[2017-11-30] MEDS ORDERED: PHENYLephrine 10 MG INJ (12:57)
[2017-11-30] MEDS ORDERED: PHENYLephrine 20MG IN 250 ML 250 ML (13:40)
[2017-11-30 13:42] LABS: ADD MAN DIFF? NO
[2017-11-30 13:46] LABS: ABNORMAL IP MESSAGE 1; BASOPHILS % 0.2 % (0.0-2.0); EOSINOPHILS % 0.2 % (0.0-7.0); HEMATOCRIT 26.2 % (37.0-47.0); HEMOGLOBIN 8.2 g/dl (12.0-16.0); LYMPHOCYTES # 2.2 10^3/ul (0.8-2.9); LYMPHOCYTES % 26.6 % (15.0-51.0); MEAN CORPUSCULAR HEMOGLOBIN 30.6 pg (29.0-33.0); MEAN CORPUSCULAR HGB CONC 31.3 g/dl (32.0-37.0); MEAN CORPUSCULAR VOLUME 97.8 fl (82.0-101.0); MONOCYTE # 0.3 10^3/ul (0.3-0.9); MONOCYTES % 3.8 % (0.0-11.0); NEUTROPHIL # 5.5 10^3/ul (1.6-7.5); NEUTROPHILS % 67.1 % (39.0-77.0); NUCLEATED RED BLOOD CELLS # 2.2 10^3/ul (0.0-0.0); NUCLEATED RED BLOOD CELLS% 27.2 /100WBC (0.0-0.0); RED BLOOD COUNT 2.68 10^6/ul (4.20-5.40); RED CELL DISTRIBUTION WIDTH 18.1 % (11.5-14.5)
[2017-11-30 13:46] LABS: WHITE BLOOD COUNT 8.2 10^3/ul (4.8-10.8)
[2017-11-30 13:54] LABS: POSITIVE DIFF @See below
[2017-11-30 13:56] LABS: PLATELET COUNT 16 10^3/UL (140-415)
[2017-11-30 14:05] LABS: ANION GAP 24 (8-16); BLOOD UREA NITROGEN 44 mg/dl (7-20); CALCIUM 7.7 mg/dl (8.4-10.2); CARBON DIOXIDE 22 mmol/L (21-31); CHLORIDE 103 mmol/L (97-110); GLUCOSE 167 mg/dl (70-220); MAGNESIUM 2.4 mg/dl (1.7-2.5); PHOSPHORUS 6.2 mg/dl (2.5-4.9); SODIUM 142 mmol/L (135-144)
[2017-11-30 14:09] LABS: AADO2 Arterial 583.6 mmHg (7.0-24.0); Allen Test ACCEPTAB; Arterial Base Excess -12.3 mmol/L (-3.0-3); Arterial Blood Gas Oxygen Sat 70.6 mmHG (95.0-100.0); Arterial COHb 0.8 % (0.0-3.0); Arterial Fraction of Oxyhgb 69.8 % (93.0-99.0); Arterial HCO3 18.8 mmol/L (22.0-26.0); Arterial MetHb 0.3 % (0.0-1.5); Arterial Total Hemglobin 9.3 g/dl (12.0-18.0); MODE VENT - AC; Site Left Radial
[2017-11-30 14:10] LABS: POTASSIUM 6.8 mmol/L (3.5-5.1)
[2017-11-30] MEDS ORDERED: PHENYLephrine 80 MG in DEXTROSE 5% 492 ML IV (14:30)
[2017-11-30] MEDS ORDERED: FUROSEMIDE 40 MG INJ IV (14:30)
[2017-11-30] MEDS ORDERED: DOPamine 800 MG in DEXTROSE 5% 230 ML IV (15:30)
[2017-12-01] MEDS ORDERED: DAPTOMYCIN IVPB (21:00)
[2017-12-01] MEDS ORDERED: SOD CHLORIDE 0.9% IVPB (21:00)
== END 2017-11-30 15:20 | disposition expired | DRG 4 ==
LOC: MS4 10-24 21:58 → ICU 11-16 06:24 → E/R 17:54 → PP2 18:14
PROC: 0B110F4 Bypass Trachea to Cutaneous with Tracheostomy Device, Open Approach (ICD-10-PCS; principal; 2017-10-30 09:20)
PROC: 5A1955Z Respiratory Ventilation, Greater than 96 Consecutive Hours (ICD-10-PCS; 2017-10-30 09:20)
PROC: 0W9D3ZX Drainage of Pericardial Cavity, Percutaneous Approach, Diagnostic (ICD-10-PCS; 2017-10-30 09:20)
PROC: 0DB68ZX Excision of Stomach, Via Natural or Artificial Opening Endoscopic, Diagnostic (ICD-10-PCS; 2017-10-30 09:20)
PROC: 0DH63UZ Insertion of Feeding Device into Stomach, Percutaneous Approach (ICD-10-PCS; 2017-10-30 09:20)
PROC: 30233N1 Transfusion of Nonautologous Red Blood Cells into Peripheral Vein, Percutaneous Approach (ICD-10-PCS; 2017-10-30 09:20)
PROC: 0BH17EZ Insertion of Endotracheal Airway into Trachea, Via Natural or Artificial Opening (ICD-10-PCS; 2017-10-30 09:20)
PROC: 05HM33Z Insertion of Infusion Device into Right Internal Jugular Vein, Percutaneous Approach (ICD-10-PCS; 2017-10-30 09:20)
PROC: 30233R1 Transfusion of Nonautologous Platelets into Peripheral Vein, Percutaneous Approach (ICD-10-PCS; 2017-10-30 09:20)
PROC: 5A1D70Z Performance of Urinary Filtration, Intermittent, Less than 6 Hours Per Day (ICD-10-PCS; 2017-10-30 09:20)
PROC: 06HM33Z Insertion of Infusion Device into Right Femoral Vein, Percutaneous Approach (ICD-10-PCS; 2017-10-30 09:20)
PROC: B54BZZA Ultrasonography of Right Lower Extremity Veins, Guidance (ICD-10-PCS; 2017-10-30 09:20)
PROC: 5A12012 Performance of Cardiac Output, Single, Manual (ICD-10-PCS; 2017-10-30 09:20)
DX: J69.0 Pneumonitis due to inhalation of food and vomit (principal); E43 Unspecified severe protein-calorie malnutrition; A41.9 Sepsis, unspecified organism; R65.21 Severe sepsis with septic shock; G93.40 Encephalopathy, unspecified; J96.01 Acute respiratory failure with hypoxia; N17.0 Acute kidney failure with tubular necrosis; E87.0 Hyperosmolality and hypernatremia; E87.3 Alkalosis; E87.2 Acidosis; I31.3 Pericardial effusion (noninflammatory); D61.818 Other pancytopenia; E03.9 Hypothyroidism, unspecified; E87.6 Hypokalemia; I45.10 Unspecified right bundle-branch block; I10 Essential (primary) hypertension; I48.0 Paroxysmal atrial fibrillation; K59.00 Constipation, unspecified; K57.30 Diverticulosis of large intestine without perforation or abscess without bleeding; K29.70 Gastritis, unspecified, without bleeding; R13.19 Other dysphagia; Z85.3 Personal history of malignant neoplasm of breast; M24.411 Recurrent dislocation, right shoulder; M81.0 Age-related osteoporosis without current pathological fracture; J39.2 Other diseases of pharynx; K22.4 Dyskinesia of esophagus; M79.81 Nontraumatic hematoma of soft tissue; I46.8 Cardiac arrest due to other underlying condition; J15.211 Pneumonia due to Methicillin susceptible Staphylococcus aureus; B95.2 Enterococcus as the cause of diseases classified elsewhere; Z16.21 Resistance to vancomycin; B00.1 Herpesviral vesicular dermatitis; Z68.24 Body mass index [BMI] 24.0-24.9, adult
CPT/HCPCS: 31500; 33010; 36415; 36430; 36600; 71045; 71260; 73020; 73200; 73510; 74018; 74177; 74230; 76536; 76700; 78306; 80048; 80051; 80053; 80076; 80202; 81001; 81003; 82550; 82607; 82728; 82746; 82803; 82945; 82962; 83605; 83615; 83735; 84100; 84145; 84155; 84157; 84165; 84443; 84484; 85025; 85045; 85049; 85362; 85378; 85384; 85610; 85670; 85730; 86022; 86300; 86320; 86644; 86850; 86900; 86901; 86920; 86945; 87040; 87045; 87070; 87075; 87081; 87086; 87102; 87116; 87340; 88104; 88305; 88312; 89051; 90935; 92526; 92610; 92611; 92950; 93005; 93306; 93308; 93970; 94002; 94003; 94664; 94770; 96374; 99285-25; A9503